=== PATIENT | female | born 1990 | race Caucasian/White ===

== ENCOUNTER 2019-10-10 14:51 | Emergency (ER) | payer MEDICARE, MEDICAID, SELFPAY ==
--- NOTE | ~2019-10-10 | US_ITS ---
EXAMINATION: US venous doppler LE EXAM DATE: 10/10/2019 17:36 INDICATION: Bilateral leg pain. TECHNIQUE: Multiple grayscale, color flow and Doppler images of the lower extremity deep venous syste ms bilaterally were obtained and reviewed. There is no prior study for comparison. FINDINGS: Right side: The right common femoral, femoral and profunda veins demonstrate normal color flow, respi ratory variation, augmentation and compressibility. Compressibility, color flow confirmed within the right popliteal, posterior tibial, peroneal, and greater saphenous veins. Left side: The left common femoral, femoral and profunda veins demonstrate normal color flow, respira tory variation, augmentation and compressibility. Compressibility, color flow confirmed within the l eft popliteal, posterior tibial, peroneal, and greater saphenous veins. IMPRESSION: 1. No lower extremity deep venous thrombosis bilaterally. Reviewed, dictated and finalized at location A.
--- NOTE | ~2019-10-10 | XR_ITS ---
XR chest 2V 10/10/2019 16:11 Indication: Left-sided chest pain Procedure: PA and lateral views of the chest Comparison: No prior studies for comparison. Findings: Heart size normal. No focal air space disease, pulmonary edema, pleural effusion or suspect ed pneumothorax. There are pacemaker leads in expected position. Impression: 1: No acute cardiopulmonary disease. Reviewed, dictated and finalized at location A. Impression: 1: No acute cardiopulmonary disease.
--- NOTE | ~2019-10-10 | CT_ITS ---
EXAMINATION: CTA chest PE protocol EXAM DATE: 10/10/2019 19:28 INDICATION: Shortness of breath. History pulmonary embolism and contrast allergy, hives. TECHNIQUE: Spiral CTA of the chest (pulmonary arteries) was performed with 100 cc Omnipaque 350 intr avenous contrast injection. Images were acquired during the pulmonary arterial phase. Coronal maxi mum intensity projection 3D-reconstructions were created by the technologist on dedicated workstation . Axial, coronal and sagittal reformatted images were reviewed. The dose-length product (DLP) for t his examination was 886.31 mGy-cm. The exposure was tailored according to patient size (auto mA exp osure control), and iterative reconstruction (ASIR) was used as additional dose reduction technique. There is no prior study for comparison. FINDINGS: Pulmonary arteries are well opacified and without intraluminal filling defects. No thora cic aortic dissection. The lungs are clear. There are no pleural or pericardial effusions. Trach eobronchial tree is patent. There is no mediastinal, hilar or axillary lymphadenopathy. There is no pneumothorax. Borderline enlarged heart size. Cardiac pacemaker. No evidence of coronary arteri al calcification. There are cholecystectomy clips. There is mild thoracic spondylosis without osteo blastic or osteolytic lesions identified. IMPRESSION: 1. No acute cardiopulmonary findings. Reviewed, dictated and finalized at location A.
--- NOTE | 2019-10-10 14:53 | ECG_ITS ---
Measurements Intervals [place] Rate: 73 P: 42 MT: 194 QRS: 183 QRSD: 132 T: -14 QT: 378 QTc: 417 Interpretive Statements ELECTRONIC ATRIAL PACEMAKER WITH INHIBITION ELECTRONIC VENTRICULAR PACEMAKER NO FURTHER INTERPRETATION IS POSSIBLE ATYPICAL ECG Electronically Signed On 10-10-2019 18:58:45 CDT by Sher Rm D.O.
[2019-10-10 15:08] VITALS: BP 140/88; PULSE 94; RESP 17; TEMP 37.1; O2SAT 99
[2019-10-10 17:02] VITALS: PULSE 75
[2019-10-10 17:08] VITALS: BP 134/88; PULSE 100; RESP 18; O2SAT 96
[2019-10-10] MEDS: ASPIRIN 81 MG CHEWABLE TABLET 324 MG PO (17:10)
--- NOTE | 2019-10-10 17:12 | ED.GENADULT ---
HPI - General Adult General Chief complaint: Chest Pain Stated complaint: CP & SOB (has PM) Time Seen by Provider: 10/10/19 15:10 History of Present Illness HPI narrative: Patient is a 29 y/o female complaining of sharp, left sided chest pain starting about 3 hours ago. She states that her pain radiates to her back and deep respiration worsens her pain. She rate her pain as 9/10. She also has some bilateral leg pain. Related Data Allergies Allergy/AdvReac Type Severity Reaction Status Date / Time Beta-Blockers Allergy Anaphylaxis Verified 10/10/19 17:07 (Beta-Adrenergic Bloc iohexol Allergy Hives Verified 10/10/19 17:06 [From contrast - CT, X-RAY] latex Allergy Anaphylaxis Verified 10/10/19 17:07 Penicillins Allergy Hives Verified 10/10/19 17:07 peppermint Allergy Rash Verified 10/10/19 17:08 Review of Systems Constitutional: Constitutional: Denies chills, Denies fever(s), Denies headache(s) and Denies weakness Eyes: Eyes: Denies blurry vision ENT: Denies headache(s) and Denies neck pain Cardiovascular: Cardiovascular: Reports chest pain and Reports dyspnea Respiratory: Respiratory: Denies cough and Reports dyspnea Gastrointestinal: Gastrointestinal: Denies abdominal pain, Denies diarrhea, Denies nausea and Denies vomiting Genitourinary: Genitourinary: Denies hematuria and Denies dysuria Musculoskeletal: Musculoskeletal: Denies back pain, Denies neck pain and Reports other (+leg pain) Neurologic: Denies headache(s) and Denies weakness [facility] Social History Social History Gender identity (if verbalized by the patient): Female Exam Const: General: no acute distress and well developed Orientation/consciousness: oriented to person, oriented to place, oriented to time and patient oriented x3 HENMT: Head: normocephalic Ears: external ears normal General nose exam: Normal external nose present Eyes: General: appearance normal, both eyes and all related structures Conjunctivae: conjunctivae normal Neck: Neck: normal visual inspection and full ROM Chest: Chest palpation & inspection: normal inspection of the chest and no tenderness Resp: Effort & Inspection: normal respiratory effort Auscultation: clear to auscultation bilaterally Cardio: Rate: regular rate Rhythm: regular rhythm GI: GI Palp: No abdominal tenderness and Yes Soft to palpation Skin: General skin exam: normal color and turgor normal Neuro: General: oriented to person, oriented to place, oriented to time and patient oriented x3 Cognition (Neuro): normal cognition Extrem: General: normal to inspection, full ROM and no pedal edema Psych: Appearance: grossly normal Mental Status: mental status grossly normal Affect: normal affect Course Reevaluation(s) Reevaluation #1: Rechecked. Patient states that her chest pain has decreased. She does not want to have repeat cardiac enzyme drawn. Informed patient that MT can be missed without repeat labs. Patient states that she will folllow up with her doctor. Date: 10/10/19 Time: 20:00 Vital Signs Vital signs: Vital Signs Temperature 37.1 C 10/10/19 15:08 Pulse Rate 94 10/10/19 15:08 Respiratory Rate 17 10/10/19 15:08 Blood Pressure 140/88 10/10/19 15:08 Pulse Oximetry 99 10/10/19 15:08 Temperature 37.1 C 10/10/19 15:08 Pulse Rate 77 10/10/19 19:34 Respiratory Rate 14 10/10/19 19:34 Blood Pressure 126/67 10/10/19 19:34 Pulse Oximetry 99 10/10/19 19:34 Medical Decision Making Vital Signs Vital Signs: Vital Signs Temperature 37.1 C 10/10/19 15:08 Pulse Rate 94 10/10/19 15:08 Respiratory Rate 17 10/10/19 15:08 Blood Pressure 140/88 10/10/19 15:08 Pulse Oximetry 99 10/10/19 15:08 Temperature 37.1 C 10/10/19 15:08 Pulse Rate 77 10/10/19 19:34 Respiratory Rate 14 10/10/19 19:34 Blood Pressure 126/67 10/10/19 19:34 Pulse Oximetry 99 10/10/19 19:34 Lab
[2019-10-10 17:16] VITALS: O2SAT 96
[2019-10-10 17:20] LABS: Basophils Percent Auto 0.5 % (0.2-1.2); Eosinophils Absolute Auto 0.3 K/mm3 (0-0.3); Eosinophils Percent Auto 3.3 % (0-4.4); Hematocrit 37.5 % (37.0-47.0); Hemoglobin 11.7 g/dL (12.0-15.0); Immature Granulocyte Absolute 0.03 K/mm3 (0.00-0.031); Immature Granulocyte Percent A 0.4 % (0-0.5); Lymphocytes Absolute Auto 1.27 K/mm3 (0.9-3.2); Lymphocytes Percent Auto 15.9 % (18.3-44.2); Mean Corpuscular HGB Conc 31.2 g/dl (32-36); Mean Corpuscular Hemoglobin 22.8 pg (26-34); Mean Corpuscular Volume 73.1 fl (80-100); Mean Platelet Volume 8.8 fl (7.4-10.4); Monocytes Absolute Auto 0.4 K/mm3 (0.1-0.6); Monocytes Percent Auto 5.5 % (2.6-8.5); Neutrophils Percent Auto 74.4 % (45.5-73.1); Platelet Count Result 358 k/mm3 (150-375); Red Blood Count 5.13 M/mm3 (4.2-5.4); Red Cell Distribution Width 17.9 % (11.5-14.5)
[2019-10-10 17:28] LABS: INR 0.9; Prothrombin Time 12.1 Seconds (11.1-14.7)
[2019-10-10 17:29] LABS: Partial Thromboplastin Time 21.1 SECONDS (22.3-36.8)
[2019-10-10 17:31] LABS: Blood Urea Nitrogen 11 mg/dL (7-17); Calcium 10.2 mg/dL (8.4-10.2); Carbon Dioxide 28 mmol/L (22-30); Chloride 104 mmol/L (98-107); Estimated CRCL calculation 153 ml/min; Estimated Glomerular Filt Rate > 60; Glucose 101 mg/dL (65-105); Potassium 4.2 mmol/L (3.4-5.0); Sodium 138 mmol/L (137-145)
[2019-10-10 17:43] LABS: Troponin I < 0.012 ng/mL (0.000-0.034)
[2019-10-10] MEDS: ONDANSETRON INJ 4 MG/2 ML VIAL IV PUSH (17:58)
[2019-10-10] MEDS: KETOROLAC 30 MG/ML VIAL (*BKC) IV PUSH (17:58)
--- NOTE | 2019-10-10 18:05 | PC.NURSE ---
pt has had full hyst. no need for test
[2019-10-10 18:33] LABS: Add Urine Microscopic? YES; Amorphous Sediment Urine Few; Appearance Urine Cloudy (Clear); Bilirubin Urine Negative (Negative); Blood Urine Negative (Negative); Color Urine Yellow (Yellow); Glucose Urine UA Negative (Negative); Ketones Urine Negative (Negative); Leukocyte Esterase Ur Negative LEU/UL (Negative); Mucus Urine Rare /lpf; Nitrate Urine Negative (Negative); Protein Urine Negative (Negative); RBC Urine 0-2 /hpf (0-2); Specific Grav Ur 1.021 (1.001-1.035); Squamous Epithelial Cell Urine Few /hpf (Few); Urobilinogen Urine Negative mg/dL (<2.0); WBC Urine 0-3 /hpf
[2019-10-10] MEDS: methylPREDNISolone SOD SUCC 125 MG VIAL IV PUSH (18:49)
[2019-10-10] MEDS: CYCLOBENZAPRINE HCL 10 MG TABLET PO (19:31)
[2019-10-10 19:34] VITALS: BP 126/67; PULSE 77; RESP 14; O2SAT 99
--- NOTE | 2019-10-10 19:35 | PC.NURSE ---
Patient reports severe itching from contrast. EDP Nigel notified.
--- NOTE | 2019-10-10 20:16 | PC.NURSE ---
Patient refusing to have 3 hour troponin drawn at this time. EDP Nigel notified.
== END 2019-10-10 20:22 | disposition home or self-care (01) ==
PROVIDERS: Emergency Provider Emergency Medicine
DX: R07.9 Chest pain, unspecified (principal); M79.605 Pain in left leg; M79.604 Pain in right leg; Z95.0 Presence of cardiac pacemaker
CPT/HCPCS: 36415; 71046; 71275; 80048; 81001; 84484; 85025; 85610; 85730; 93005; 93970; 96374; 96375; 96376; 99284; A9270; J1200; J1885; J2405; J2930; Q9967

== ENCOUNTER 2021-12-29 23:03 | Emergency (ER) | payer MEDICARE, MEDICAID, SELFPAY ==
--- NOTE | ~2021-12-29 | XR_ITS ---
EXAMINATION: XR chest 1V portable INDICATION: Left-sided chest pain and shortness of breath TECHNIQUE: Portable AP chest at 2324 hours COMPARISON: 10/10/2019 FINDINGS: The lungs are free of acute opacities. No pleural effusion or pneumothorax. A 4-lead cardia c pacemaker of the left chest wall ends with leads in expected locations. IMPRESSION: 1. No acute cardiopulmonary abnormality. Reviewed, dictated and finalized at location A.
--- NOTE | ~2021-12-29 | CT_ITS ---
EXAMINATION: CTA chest PE protocol DATE: 12/30/2021 05:08 INDICATION: Left chest pain. Shortness of breath. TECHNIQUE: Computed tomography angiography (CTA) of the chest was performed with 100 mL Omnipaque-350 intravenous contrast timed to evaluate the pulmonary arteries. Coronal maximum intensity projection 3D-reconstructions were created by the technologist. Automated exposure control and iterative reconst ruction technique were employed. The dose-length product was 904.24 mGy-cm. COMPARISON: Chest CT 10/10/2019 FINDINGS: The lungs demonstrate mild atelectasis. No pleural effusion. Cardiomegaly is noted. No maida cardial effusion. There is a left chest pacer with leads in right atrium, right ventricle, and magdaleno ry sinus. There is no pulmonary embolus. There are changes of cholecystectomy. There is mild thoracic spondylosis. IMPRESSION: 1. No pulmonary embolus. Reviewed, dictated and finalized at location A. IMPRESSION: 1. No pulmonary embolus.
[2021-12-29 23:07] VITALS: BP 134/78; PULSE 70; RESP 14; O2SAT 100
--- NOTE | 2021-12-29 23:11 | ECG_ITS ---
Measurements Intervals [place] Rate: 69 P: -40 [place]: 205 QRS: 170 QRSD: 133 T: 17 QT: 401 QTc: 432 Interpretive Statements ELECTRONIC ATRIAL PACEMAKER ELECTRONIC VENTRICULAR PACEMAKER ABNORMAL RHYTHM ECG COMPARED TO ECG 10/10/2019 15:03:00 NO SIGNIFICANT CHANGES Electronically Signed On 12-30-2021 16:55:51 CDT by Petr Teran M.D.
[2021-12-29 23:12] VITALS: O2SAT 100
--- NOTE | 2021-12-29 23:28 | PC.NURSE ---
Attempted IV access X2, unsuccessful. Another RN attempting.
[2021-12-29 23:33] VITALS: PULSE 70; RESP 18
--- NOTE | 2021-12-29 23:38 | ED.GENADULT ---
HPI - General Adult General Chief complaint: Chest Pain Stated complaint: chest pain Time Seen by Provider: 12/29/21 23:11 History of Present Illness HPI narrative: Patient is a 31-year-old female who presents the emergency department with chief complaint of chest pain and shortness of breath. Patient reports that she has history of a pacemaker and reports that she now currently has a free-floating pacemaker. Patient states that she has been having sharp type pain in her left chest today reports is worse with inspiration. Patient states she is also had some increasing shortness of breath and reports that she has noticed that she had a little bit of swelling. Patient reports she has had episodes of congestive heart failure before in the past also reports that she has history of a pulmonary embolism. Patient does report that she has had itching after receiving IV contrast and normally is premedicated with Solu-Medrol and Benadryl. Related Data Allergies Allergy/AdvReac Type Severity Reaction Status Date / Time Beta-Blockers Allergy Anaphylaxis Verified 12/30/21 00:11 (Beta-Adrenergic Bloc iohexol Allergy Hives Verified 12/30/21 00:11 [From contrast - CT, X-RAY] latex Allergy Anaphylaxis Verified 12/30/21 00:11 Penicillins Allergy Hives Verified 12/30/21 00:11 peppermint Allergy Rash Verified 12/30/21 00:11 Review of Systems Review of Systems: A 10 system review of systems was completed on the patient and is negative except for what is stated in the HPI. Nursing and ancillary documentation was reviewed. [facility] Social History Social History Gender identity (if verbalized by the patient): Female Comments Patient has past medical history significant for pacemaker and absent SA node. Patient has history of foot drop due to degenerative disc disease. Exam Narrative: GENERAL: Well-appearing, well-nourished, and in no acute distress. HEAD: Normocephalic, atraumatic. EYES: PERRLA and EOMI. ENT: Nares clear, no rhinorrhea or epistaxis. Mucous membranes moist. NECK: Supple. CHEST: Clear to auscultation. No respiratory distress. HEART: Regular rate and rhythm. No murmur heard. Normal peripheral pulses. ABDOMEN: Soft, nontender, nondistended, normal active bowel sounds. EXTREMITIES: Normal range of motion. No edema. Both extremities are in braces SKIN: Warm, dry, no rash. NEURO: No focal deficits. Alert and oriented x3. PSYCH: Normal mood and affect. Course Course Emergency Course: EKG is atrial paced with a rate of 69 Patient had 2 sets of troponins that were negative in the emergency department. Due to a contrast allergy patient underwent a rapid prep which is showing no evidence of pulmonary embolism. The patient's pacemaker was interrogated which showed no abnormalities. Vital Signs Vital signs: Vital Signs Pulse Rate 70 12/29/21 23:07 Respiratory Rate 14 12/29/21 23:07 Blood Pressure 134/78 12/29/21 23:07 Pulse Oximetry 100 12/29/21 23:07 Oxygen Delivery Room Air 12/29/21 23:07 Pulse Rate 70 12/30/21 03:45 Respiratory Rate 15 12/30/21 03:33 Blood Pressure 117/83 12/30/21 03:33 Pulse Oximetry 98 12/30/21 03:45 Oxygen Delivery Room Air 12/29/21 23:12 Medical Decision Making Vital Signs Vital Signs: Vital Signs Pulse Rate 70 12/29/21 23:07 Respiratory Rate 14 12/29/21 23:07 Blood Pressure 134/78 12/29/21 23:07 Pulse Oximetry 100 12/29/21 23:07 Oxygen Delivery Room Air 12/29/21 23:07 Pulse Rate 70 12/30/21 03:45 Respiratory Rate 15 12/30/21 03:33 Blood Pressure 117/83 12/30/21 03:33 Pulse Oximetry 98 12/30/21 03:45 Oxygen Delivery Room Air 12/29/21 23:12 Lab Data Result diagrams: 12/29/21 23:38 12/29/21 23:38 Labs: Lab Results 12/29/21 12/29/21 12/29/21 Range/Units 23:38 23:38 23:38 WBC 9.0 (4.5-10.0) K/mm
[2021-12-29] MEDS: diphenhydrAMINE HCl INJ 50 MG/ML VIAL IV PUSH (23:41)
[2021-12-29] MEDS: MORPHINE SULFATE (*CRX) 4 MG/ML INJ IV PUSH (23:41)
[2021-12-29] MEDS: ONDANSETRON INJ 4 MG/2 ML VIAL IV PUSH (23:41)
[2021-12-29 23:43] LABS: Basophils Absolute Auto 0.1 K/mm3 (0.0-0.1); Basophils Percent Auto 0.6 % (0.2-1.2); Eosinophils Absolute Auto 0.4 K/mm3 (0-0.3); Eosinophils Percent Auto 4.3 % (0-4.4); Hematocrit 34.1 % (37.0-47.0); Hemoglobin 10.7 g/dL (12.0-15.0); Immature Granulocyte Absolute 0.03 K/mm3 (0.00-0.031); Immature Granulocyte Percent A 0.3 % (0-0.5); Lymphocytes Absolute Auto 2.85 K/mm3 (0.9-3.2); Lymphocytes Percent Auto 31.7 % (18.3-44.2); Mean Corpuscular HGB Conc 31.4 g/dl (32-36); Mean Corpuscular Hemoglobin 24.8 pg (26-34); Mean Corpuscular Volume 79.1 fl (80-100); Mean Platelet Volume 8.8 fl (7.4-10.4); Monocytes Absolute Auto 0.6 K/mm3 (0.1-0.6); Monocytes Percent Auto 6.2 % (2.6-8.5); Neutrophils Absolute Auto 5.1 K/mm3 (1.3-6.7); Neutrophils Percent Auto 56.9 % (45.5-73.1); Platelet Count Result 298 k/mm3 (150-375); Red Blood Count 4.31 M/mm3 (4.2-5.4); Red Cell Distribution Width 14.8 % (11.5-14.5)
[2021-12-29 23:45] VITALS: PULSE 70; RESP 16; O2SAT 100
[2021-12-29 23:53] LABS: Alanine Aminotransferase 16 U/L (6-35); Albumin Level 3.7 g/dL (3.5-5.1); Alkaline Phosphatase 94 U/L (38-126); Anion Gap 11 mmol/L (8-16); Aspartate Amino Transferase 18 U/L (14-36); Bilirubin,Total 0.2 mg/dL (0.2-1.3); Blood Urea Nitrogen 12 mg/dL (7-17); Calcium 9.4 mg/dL (8.4-10.2); Carbon Dioxide 28 mmol/L (22-30); Chloride 99 mmol/L (98-107); Estimated CRCL calculation 130 ml/min; Estimated Glomerular Filt Rate > 60; Glucose 105 mg/dL (65-110); Lipase 92 U/L (23-300); Potassium 3.7 mmol/L (3.4-5.0); Sodium 138 mmol/L (137-145)
[2021-12-29 23:56] LABS: Prothrombin Time 12.6 Seconds (11.1-14.7)
[2021-12-29 23:57] LABS: Partial Thromboplastin Time 31.4 SECONDS (22.3-36.8)
[2021-12-29 23:59] VITALS: BP 118/76; PULSE 70; RESP 19; O2SAT 100
[2021-12-30] VITALS (34 sets, daily range): BP systolic 113–127; BP diastolic 64–83; PULSE 70; RESP 12–22; O2SAT 96–100
--- NOTE | 2021-12-30 | PC.NURSE ---
Patients pacer interrogated.
[2021-12-30 00:04] LABS: NT Pro B Type Natriuretic Pept 231 pg/mL (5-100); Troponin I < 0.012 ng/mL (0.000-0.034)
--- NOTE | 2021-12-30 00:05 | PC.NURSE ---
Jane from [employer] calls to inform that the report is faxed.
[2021-12-30] MEDS: methylPREDNISolone SOD SUCC 40 MG VIAL IV PUSH ×2 (00:51→05:06)
[2021-12-30] MEDS: HYDROmorphone HCL INJ (*CRX) 1 MG/ML SYR IV PUSH ×2 (00:51→03:17)
[2021-12-30 03:00] LABS: Troponin I < 0.012 ng/mL (0.000-0.034)
[2021-12-30] MEDS: diphenhydrAMINE HCl INJ 50 MG/ML VIAL IV PUSH ×2 (03:56→05:06)
--- NOTE | 2021-12-30 04:47 | PC.NURSE ---
Patient CT at this time.
== END 2021-12-30 05:57 | disposition home or self-care (01) ==
PROVIDERS: Emergency Provider Emergency Medicine
DX: R07.89 Other chest pain (principal); Z95.0 Presence of cardiac pacemaker
CPT/HCPCS: 36415; 71045; 71275; 80053; 83690; 83880; 84484; 85025; 85610; 85730; 93005; 96374; 96375; 96376; 99284; J1170; J1200; J2270; J2405; J2920; Q9967

== ENCOUNTER 2022-01-05 11:06 | Observation (INO) | payer MEDICARE, MEDICAID, SELFPAY ==
[2022-01-05] VITALS (16 sets, daily range): BP systolic 100–147; BP diastolic 62–97; PULSE 70; RESP 16–20; TEMP 36.4–36.6; O2SAT 96–100; BMI 50.9
--- NOTE | ~2022-01-05 | XR_ITS ---
EXAMINATION: XR chest 2V DATE: 01/05/2022 11:31 INDICATION: Left chest pain. TECHNIQUE: Frontal and lateral views of the chest were obtained on 3 radiographs. COMPARISON: Chest single view 12/29/2021, chest CT 12/30/2021 FINDINGS: The chest demonstrates clear lungs without pneumonia, pleural effusion, or pneumothorax. Th e heart size is normal. There is a left chest pacer with leads in right atrium, right ventricle, and coronary sinus. There is an additional lead in right atrium. Surgical clips in the right upper quadra nt are likely from cholecystectomy. IMPRESSION: 1. No acute cardiopulmonary disease. Reviewed, dictated and finalized at location A.
--- NOTE | 2022-01-05 11:10 | ECG_ITS ---
Measurements Intervals [place] Rate: 69 P: -4 RI: 209 QRS: 177 QRSD: 121 T: -5 QT: 396 QTc: 427 Interpretive Statements ELECTRONIC ATRIAL PACEMAKER ELECTRONIC VENTRICULAR PACEMAKER ATYPICAL ECG COMPARED TO ECG 12/29/2021 23:10:52 NO SIGNIFICANT CHANGES Electronically Signed On 01-05-2022 14:00:29 CDT by Sher Rm D.O.
[2022-01-05 12:33] LABS: Alanine Aminotransferase 117 U/L (6-35); Albumin Level 4.1 g/dL (3.5-5.1); Alkaline Phosphatase 192 U/L (38-126); Anion Gap 7 mmol/L (8-16); Aspartate Amino Transferase 45 U/L (14-36); Bilirubin,Total 0.8 mg/dL (0.2-1.3); Blood Urea Nitrogen 7 mg/dL (7-17); Calcium 9.3 mg/dL (8.4-10.2); Carbon Dioxide 27 mmol/L (22-30); Chloride 104 mmol/L (98-107); Estimated CRCL calculation 117 ml/min; Estimated Glomerular Filt Rate > 60; Glucose 102 mg/dL (65-110); Lipase 56 U/L (23-300); Potassium 4.5 mmol/L (3.4-5.0); Sodium 138 mmol/L (137-145)
[2022-01-05 12:39] LABS: INR 0.9; Prothrombin Time 12.2 Seconds (11.1-14.7)
[2022-01-05 12:40] LABS: Partial Thromboplastin Time 25.6 SECONDS (22.3-36.8)
[2022-01-05 12:43] LABS: Troponin I < 0.012 ng/mL (0.000-0.034)
--- NOTE | 2022-01-05 13:16 | PC.NURSE ---
Pt refusing Toradol said it never works with me and better not have it .
[2022-01-05] MEDS: ONDANSETRON INJ 4 MG/2 ML VIAL IV PUSH (13:27)
[2022-01-05] MEDS: MORPHINE SULFATE (*CRX) 4 MG/ML INJ IV PUSH (13:33)
[2022-01-05 13:57] LABS: Basophils Percent Auto 0.3 % (0.2-1.2); Eosinophils Absolute Auto 0.3 K/mm3 (0-0.3); Eosinophils Percent Auto 3.5 % (0-4.4); Hematocrit 35.2 % (37.0-47.0); Hemoglobin 10.8 g/dL (12.0-15.0); Immature Granulocyte Absolute 0.04 K/mm3 (0.00-0.031); Immature Granulocyte Percent A 0.4 % (0-0.5); Lymphocytes Absolute Auto 1.56 K/mm3 (0.9-3.2); Lymphocytes Percent Auto 17.5 % (18.3-44.2); Mean Corpuscular HGB Conc 30.7 g/dl (32-36); Mean Corpuscular Hemoglobin 24.6 pg (26-34); Mean Corpuscular Volume 80.2 fl (80-100); Mean Platelet Volume 8.9 fl (7.4-10.4); Monocytes Absolute Auto 0.4 K/mm3 (0.1-0.6); Monocytes Percent Auto 4.7 % (2.6-8.5); Neutrophils Absolute Auto 6.5 K/mm3 (1.3-6.7); Neutrophils Percent Auto 73.6 % (45.5-73.1); Platelet Count Result 353 k/mm3 (150-375); Red Blood Count 4.39 M/mm3 (4.2-5.4); Red Cell Distribution Width 15.4 % (11.5-14.5); White Blood Count 8.9 K/mm3 (4.5-10.0)
[2022-01-05 14:18] LABS: Troponin I < 0.012 ng/mL (0.000-0.034)
[2022-01-05] MEDS: MORPHINE SULFATE (*CRX) 2 MG/ML INJ IV PUSH ×3 (14:47→20:29)
--- NOTE | 2022-01-05 15:47 | ED.CHESTPAIN ---
HPI - Chest Pain General Chief Complaint: Chest Pain Stated Complaint: chest pain Time Seen by Provider: 01/05/22 11:22 Source: RN notes reviewed History of Present Illness HPI narrative: Patient presents emergency room from home for chest pain. Patient states he has been having midsternal chest pain that radiates into her left arm the pain is described as a pressure in nature states she does have a feeling of shortness of breath with the symptoms she denies any fevers or chills states she does have associated nausea. Patient states she has a cardiac history of having 9 total cardiac ablation secondary to A. fib and SVT this ultimately resulted in ablation of her SA node and has had a pacemaker placed she states her pacemaker was last replaced in July but she does not follow with any director of collections and archives Related Data Allergies Allergy/AdvReac Type Severity Reaction Status Date / Time Beta-Blockers Allergy Anaphylaxis Verified 12/30/21 00:11 (Beta-Adrenergic Bloc iohexol Allergy Hives Verified 12/30/21 00:11 [From contrast - CT, X-RAY] latex Allergy Anaphylaxis Verified 12/30/21 00:11 Penicillins Allergy Hives Verified 12/30/21 00:11 peppermint Allergy Rash Verified 12/30/21 00:11 Review of Systems Review of Systems: Gen.: Denies fevers or chills ENT: Denies congestion Respiratory: Reports shortness of breath CV: see HPI GI: Denies abdominal pain, emesis or diarrhea recent nausea Musculoskeletal: Denies back pain or muscle pain Neuro: Denies numbness, tingling, weakness or focal weakness Skin: Denies rash Except as documented, all other systems reviewed and negative [facility] Past Medical History Medical History (Updated 01/05/22 @ 16:08 by Keith Teresa DO) Atrial fibrillation Social History Social History (Updated 01/05/22 @ 16:07 by Keith Teresa DO) Smoking status: Never smoker Gender identity (if verbalized by the patient): Female Exam Narrative: APPEARANCE: No acute distress, nontoxic, resting in bed EYES: EOMI HEENT: Normocephalic, atraumatic, OMM RESPIRATORY: No respiratory distress Clear to auscultation bilaterally with no rhonchi wheezing or rales. CARDIOVASCULAR: Regular rate and rhythm without murmurs rubs or gallops. ABDOMINAL: Soft, nontender, nondistended, no rebound or guarding MUSCULOSKELETAl: Moves all extremities. No clubbing, cyanosis or edema. NEURO: Awake and alert. Following commands, speech normal, no focal deficits SKIN:: Warm, dry. No rashes lesions or abrasions PSYCHIATRIC: Normal affect/mood, Course Course Emergency Course: -year-old records the patient was seen here on 12/29/[address] of her chest at that time is negative I discussed with patient her history of PEs last PE was 3 years ago following surgery states she had been on Xarelto at one point but had a reaction to it and she just restarted taking Lovenox injections approximately 3 days ago Discussed with patient she states that her does not help with her pain working given with resolution of her pain Discussed with ILDA Abreu for Dr. Olivia agrees with admission Discussed with Dr. Teran agrees with consult Discussed with patient and family results of workup and diagnosis. Discussed need for admission. Patient and family understand and agree to current treatment plan Vital Signs Vital signs: Vital Signs Temperature 97.6 F 01/05/22 11:17 Pulse Rate 70 01/05/22 11:17 Respiratory Rate 16 01/05/22 11:17 Blood Pressure 118/78 01/05/22 11:17 Pulse Oximetry 100 01/05/22 11:17 Oxygen Delivery Room Air 01/05/22 11:17 Temperature 97.6 F 01/05/22 11:17 Pulse Rate 70 01/05/22 15:33 Respiratory Rate 18 01/05/22 15:33 Blood Pressure 120/76 01/05/22 15:33 Pulse Oximetry 100 01/05/22 15:33 Oxygen Delivery Room Air 01/05/22 11:37 MDM - Chest Pain Lab Data Result diagrams: 01/05/22 13:52 01/05/22 12:16 Labs: Lab Results
--- NOTE | 2022-01-05 16:30 | PM.IMHP ---
H&P: HPI History of Present Illness Date/Time: 01/05/22 16:30 Chief Complaint: Chest pain. Narrative: This is a 31-year-old female with history of atrial fibrillation and supraventricular tachycardia status post cardiac ablation x9, permanent pacemaker implantation, and pulmonary embolism who presented to the ED from home for evaluation of chest pain. Her first pacemaker was inserted in 2012 and she has reportedly had several other surgeries for generator changes and lead replacements, most recently in July 2021 at [facility]. It is not unusual for her to have pain in the left anterior chest near the pacemaker and she reports that the pocket is quite large and the pacemaker migrates frequently, causing sharp pain which radiates into the left upper arm. She came in today for evaluation of this very pain. She is on chronic pain medications at home due to severe spinal stenosis and to those medications have not provided her with any significant relief. Morphine given in the emergency department has been only thing that has really helped take the edge off. EKG done today on arrival shows an atrial and ventricular paced rhythm. She has thus far had 2 negative troponins. Pertinent labs include a stable hemoglobin of 10.8, normal electrolytes, normal troponin, lipase 56, and moderate LFT elevation with an AST of 45, ALT 117, alkaline phosphatase 182. Plans were for the patient to follow-up with her music therapy teacher should her troponins remain negative however she reports not currently having a music therapy teacher as [facility] will no longer see her after 3 missed appointments, per patient report. Due to lack of follow-up I was asked to admit her overnight for observation and Cardiology consultation. Again morphine has helped with her chest pain. She has no current complaints at this time. Of note she was seen emergency department within the past week with similar complaints and a CTA of the chest done at that time showed no evidence of pulmonary embolism. Review of Systems Review of Systems: Twelve systems were reviewed. No syncope or presyncope. She has bilateral footdrop, reportedly is secondary to severe spinal stenosis, and she has braces on both of her legs. She also uses a wheelchair for longer distances. She suffers from PTSD and has a good support system in her fiance. No recent cold or flu symptoms. Appetite has been okay. No nausea, vomiting, or diarrhea. She denies abdominal pain. Reports mild dysuria. Except as documented, all other systems were reviewed and are negative. [facility] Past Medical History Medical History (Updated 01/05/22 @ 22:26 by Lois Altman PA-C) Atrial fibrillation Bilateral foot-drop Chronic anemia Chronic pain syndrome Depression with anxiety Posttraumatic stress disorder Pulmonary embolism Spinal stenosis Supraventricular tachycardia Surgical History Surgical History (Updated 01/05/22 @ 22:23 by Lois Altman PA-C) History of Achilles tendon repair History of appendectomy History of cardiac radiofrequency ablation History of section History of cholecystectomy History of hysterectomy History of permanent cardiac pacemaker placement Family History Family History (Updated 01/05/22 @ 22:23 by Lois Altman PA-C) Father Spinal cord tumor Social History Social History (Updated 01/05/22 @ 22:24 by Lois Altman PA-C) Social History: Surrogate medical decision maker: moriah Ruvalcaba. Code status: Full code. Smoking status: Never smoker Alcohol intake: never Substance use: never Substance use type: does not use Additional living arrangements comments: Lives in [place], [place] with her 8-year-old daughter and moriah. Additional occupation/education comments: On disability. Spiritual care concerns: Yes (Would like Director Of Nuclear Medicine to see her if possible) Meds Home Medications and Allergies Home Medications Medication Instructions Recorded Confirmed Type baclo
--- NOTE | 2022-01-05 17:33 | ADMGEN ---
This patient, Tatiana Leija, was admitted to IMU Room 209-01 at 1708. Patient/family oriented to hospital policies and general routines including ID bracelet, bed and alarms, visiting hours, pain management, procedures, bathroom and other care routines, personal items, smoking policy, room service/diet, and visiting hours. Information on how to activate the Rapid Response Team has been discussed. Patient/Family are encouraged to report perceived risks to care and to ask questions if they do not understand what they are told or what they should do.
[2022-01-05 18:10] LABS: Troponin I < 0.012 ng/mL (0.000-0.034)
[2022-01-05] MEDS: LORazepam (*CRX) 1 MG TABLET PO (20:31)
[2022-01-05] MEDS: ESCITALOPRAM OXALATE 10 MG TABLET 20 MG PO (20:53)
[2022-01-05] MEDS: traZODone HCL 50 MG TABLET 200 MG PO (20:54)
[2022-01-05] MEDS: traMADol HCL (*CRX) 50 MG TABLET PO (22:29)
[2022-01-05 22:55] LABS: Acetaminophen < 10 ug/mL (10-30)
[2022-01-06] VITALS (8 sets, daily range): BP systolic 105–112; BP diastolic 52–80; PULSE 69–70; RESP 12–20; TEMP 36.3–36.6; O2SAT 97–100
[2022-01-06] MEDS: MORPHINE SULFATE (*CRX) 2 MG/ML INJ IV PUSH ×3 (00:16→08:31)
[2022-01-06 05:01] LABS: Basophils Percent Auto 0.2 % (0.2-1.2); Eosinophils Absolute Auto 0.3 K/mm3 (0-0.3); Eosinophils Percent Auto 3.4 % (0-4.4); Hematocrit 32.1 % (37.0-47.0); Hemoglobin 10.2 g/dL (12.0-15.0); Immature Granulocyte Absolute 0.04 K/mm3 (0.00-0.031); Immature Granulocyte Percent A 0.5 % (0-0.5); Lymphocytes Absolute Auto 2.06 K/mm3 (0.9-3.2); Lymphocytes Percent Auto 24.2 % (18.3-44.2); Mean Corpuscular HGB Conc 31.8 g/dl (32-36); Mean Corpuscular Hemoglobin 24.9 pg (26-34); Mean Corpuscular Volume 78.5 fl (80-100); Mean Platelet Volume 8.9 fl (7.4-10.4); Monocytes Absolute Auto 0.5 K/mm3 (0.1-0.6); Neutrophils Absolute Auto 5.6 K/mm3 (1.3-6.7); Neutrophils Percent Auto 65.7 % (45.5-73.1); Platelet Count Result 326 k/mm3 (150-375); Red Blood Count 4.09 M/mm3 (4.2-5.4); Red Cell Distribution Width 15.4 % (11.5-14.5); White Blood Count 8.5 K/mm3 (4.5-10.0)
[2022-01-06 05:12] LABS: Partial Thromboplastin Time 31.4 SECONDS (22.3-36.8); Prothrombin Time 12.9 Seconds (11.1-14.7)
[2022-01-06 05:17] LABS: Alanine Aminotransferase 112 U/L (6-35); Albumin Level 3.6 g/dL (3.5-5.1); Alkaline Phosphatase 219 U/L (38-126); Anion Gap 7 mmol/L (8-16); Aspartate Amino Transferase 83 U/L (14-36); Bilirubin,Total 0.6 mg/dL (0.2-1.3); Blood Urea Nitrogen 9 mg/dL (7-17); Calcium 8.9 mg/dL (8.4-10.2); Carbon Dioxide 27 mmol/L (22-30); Chloride 101 mmol/L (98-107); Estimated CRCL calculation 118 ml/min; Estimated Glomerular Filt Rate > 60; Glucose 120 mg/dL (65-110); Magnesium 2.4 mg/dL (1.6-2.3); Potassium 3.6 mmol/L (3.4-5.0); Sodium 135 mmol/L (137-145)
[2022-01-06 05:56] LABS: Hepatitis B Surface Antigen Negative (Negative)
[2022-01-06 06:01] LABS: HAV RESULT Negative (Negative); Hepatitis B Core IgM Result Negative (Negative)
[2022-01-06 06:13] LABS: Hepatitis C Virus Antibody Negative (Negative)
[2022-01-06 07:08] LABS: Free T4 Free Thyroxine Reflex 0.88 ng/dL (0.78-2.19)
[2022-01-06] MEDS: traMADol HCL (*CRX) 50 MG TABLET PO (07:29)
[2022-01-06 07:53] LABS: Total Triiodothyronine (T3) 1.18 NG/ML (0.97-1.69)
[2022-01-06] MEDS: ENOXAPARIN 40 MG/0.4 ML SYRINGE SUB-Q (08:31)
--- NOTE | 2022-01-06 09:41 | PM.CNCAR ---
Assessment and Plan Assessment and plan (1) Chest pain: Code(s): R07.9 - Chest pain, unspecified Status: Acute (2) Pacemaker: Code(s): Z95.0 - Presence of cardiac pacemaker Status: Acute Plan This is a 31-year-old lady who apparently experienced a AV node ablation during an attempt at ablating her atrial fibrillation approximately 10 years ago up in [place]. She therefore is dependent on electronic pacing. Her current device is a biventricular device as I can see 2 prior atrial leads, right ventricular lead in the high septum and a coronary sinus lead as well. She says this is a [employer] device. It appears to be functioning normally on telemetry and we will need to establish follow-up of this in our office as her previous physicians have dismissed her for noncompliance with office follow-up. It is clear that her chest pain symptoms are not mediated by myocardial ischemia she does not have to stay in the hospital any longer because of this chest pain. When she does need generator change it is possible to consider a subpectoral implant if mobility of the device is painful for her. Obviously I would not recommend reopening her pocket at this time and performing that procedure as it is a recently implanted device that is functioning well. Petr Teran MD [facility] History of Present Illness History of Present Illness Consult date/time: 01/06/22 09:41 Consult reason: chest pain Reason For Visit: chest pain Narrative: This is a 31-year-old woman who unfortunately has a chronically implanted pacemaker device because of complications that occurred during an ablation procedure about 10 years ago. She came to the hospital yesterday to the emergency room because of chest pain and was seen in the emergency room and have at evaluated and admitted to the hospital yesterday afternoon. The patient states that she has been having chest pain episodes for about 6 months and she attributes them to her pacemaker generator moving around inside of the pocket in her left anterior chest wall. She does notice that when she changes positions the pacemaker will migrate and become painful the pain yesterday was more severe and radiating down her left arm and she became concerned and came to the emergency room. In the emergency room her electrocardiogram demonstrates an AV sequentially paced rhythm but no other abnormalities. She had negative troponin on admission and that has remained negative x3 sets. She was given some morphine for this pain yesterday with improvement but not resolution of the discomfort. 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 Apparently her cardiac history starts about 10 years ago when she was living up in [place] and she developed symptomatic atrial fibrillation. She was treated in a private hospital in [place] with a ablation procedure and unfortunately experienced AV junction ablation and became dependent on a pacemaker at that time. She has had several pacemaker generator is done since then. She after a short time moved to the [facility] where she was originally from and has been seeing physicians over the years but at [facility], she says at [facility] and at [facility]. She can not tell me why she has been seeing physicians at all these different hospitals in the last decade. 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 She states that these symptoms have been bothering her since that procedure. She says that she has a [employer] pacemaker and has no other cardiac problems that she can recall. She is morbidly obese with a BMI of 50 and has a history of a spinal cord dysfunction related to disc disease
--- NOTE | 2022-01-06 10:04 | PM.DS ---
DS: Admitting Diagnosis Discharge Date January 06, 2022 Admitting Diagnosis Chest pain DS: Discharge Diagnosis Discharge Diagnosis (1) Chest pain: Code(s): R07.9 - Chest pain, unspecified Status: Acute Assessment and Plan: Her pain seems to be stemming from her pacemaker which reportedly migrates throughout the pocket, at times causing her severe chest pain radiating to the left arm. She was seen in this ER just last week at which time she had a CTA of the chest which ruled out pulmonary embolism. Her pain is unlikely to be stemming from an acute coronary syndrome. Dr. Teran (cardiology) was consulted by the ED physician and his input is greatly appreciated. Analgesics available as needed. (2) Chronic anemia: Code(s): D64.9 - Anemia, unspecified Status: Acute Assessment and Plan: Hemoglobin and hematocrit are stable on review of previous labs. (3) Elevated LFTs: Code(s): R79.89 - Other specified abnormal findings of blood chemistry Status: Acute Assessment and Plan: AST, ALT, and alkaline phosphatase are all elevated when compared to labs drawn last week. Her abdominal exam is benign. She denies taking significant quantities of Tylenol though will check acetaminophen level and hepatitis panel for completeness sake. Continue to monitor. (4) Chronic pain syndrome: Code(s): G89.4 - Chronic pain syndrome Status: Acute Assessment and Plan: Continue gabapentin and tramadol as prescribed. (5) Depression with anxiety: Code(s): F41.8 - Other specified anxiety disorders Status: Acute Assessment and Plan: The patient suffers from depression, anxiety, and posttraumatic stress disorder. States that is pretty well controlled on her home medication. Continue escitalopram and lorazepam. Plan Of note, the patient's primary care doctor started her on Lovenox 1 milligram/kilogram once a day several months ago ?because he thought a needed it due to my history of AFib.? She is not really compliant with that medication and she apparently did not start taking it for a month or more after it was prescribed and it does not sound as though she takes it on a daily basis. At this time will hold on therapeutic dose anticoagulation, pending Cardiology input. DS: Summary Hospital Course Hospital Course: 31-year-old female with history of atrial fibrillation and supraventricular tachycardia status post cardiac ablation x9, permanent pacemaker implantation, and pulmonary embolism who presented to the ED from home for evaluation of chest pain. Her first pacemaker was inserted in 2012 and she has reportedly had several other surgeries for generator changes and lead replacements, most recently in July 2021 at [facility]. It is not unusual for her to have pain in the left anterior chest near the pacemaker and she reports that the pocket is quite large and the pacemaker migrates frequently, causing sharp pain which radiates into the left upper arm. She came in today for evaluation of this very pain. She is on chronic pain medications at home due to severe spinal stenosis and to those medications have not provided her with any significant relief. Morphine given in the emergency department has been only thing that has really helped take the edge off. EKG done today on arrival shows an atrial and ventricular paced rhythm.? She has thus far had 2 negative troponins. Pertinent labs include a stable hemoglobin of 10.8, normal electrolytes, normal troponin, lipase 56, and moderate LFT elevation with an AST of 45, ALT 117, alkaline phosphatase 182. Plans were for the patient to follow-up with her assembler watch train should her troponins remain negative however she reports not currently having a assembler watch train as [facility] will no longer see her after 3 missed appointments, per patient report. Due to lack of follow-up I was asked to admit her overnight for observation and Cardiology consultation. A
== END 2022-01-06 14:40 | disposition home or self-care (01) ==
LOC: ANHED 16:08 → ANHIMU 16:38
PROVIDERS: Physician Assistant; Admitting Provider Student in an Organized Health Care Education/Training Program; Emergency Provider Emergency Medicine; Visit Provider Student in an Organized Health Care Education/Training Program
DX: R07.9 Chest pain, unspecified (principal); D64.9 Anemia, unspecified; R79.89 Other specified abnormal findings of blood chemistry; R06.02 Shortness of breath; Z95.0 Presence of cardiac pacemaker; G89.4 Chronic pain syndrome; F41.8 Other specified anxiety disorders; I48.91 Unspecified atrial fibrillation; I47.1 Supraventricular tachycardia; M48.00 Spinal stenosis, site unspecified; M21.372 Foot drop, left foot; M21.371 Foot drop, right foot; F43.10 Post-traumatic stress disorder, unspecified; Z86.711 Personal history of pulmonary embolism; Z79.01 Long term (current) use of anticoagulants; Z79.1 Long term (current) use of non-steroidal anti-inflammatories (NSAID); Z79.899 Other long term (current) drug therapy
CPT/HCPCS: 36415; 71046; 80053; 80074; 80307; 83690; 83735; 84439; 84443; 84480; 84484; 85025; 85610; 85730; 93005; 96372; 96374; 96375; 96376; 99285; A9270; G0378; J1650; J2270; J2405

== ENCOUNTER 2022-01-16 21:54 | Emergency (ER) | payer MEDICARE, MEDICAID, SELFPAY ==
[2022-01-16 22:00] VITALS: BP 135/85; PULSE 70; RESP 18; TEMP 36.3; O2SAT 99
[2022-01-16 22:33] LABS: Basophils Absolute Auto 0.1 K/mm3 (0.0-0.1); Basophils Percent Auto 0.5 % (0.2-1.2); Eosinophils Absolute Auto 0.3 K/mm3 (0-0.3); Eosinophils Percent Auto 2.3 % (0-4.4); Hematocrit 36.8 % (37.0-47.0); Hemoglobin 11.6 g/dL (12.0-15.0); Immature Granulocyte Absolute 0.03 K/mm3 (0.00-0.031); Immature Granulocyte Percent A 0.3 % (0-0.5); Lymphocytes Absolute Auto 2.66 K/mm3 (0.9-3.2); Lymphocytes Percent Auto 24.4 % (18.3-44.2); Mean Corpuscular HGB Conc 31.5 g/dl (32-36); Mean Corpuscular Hemoglobin 24.7 pg (26-34); Mean Corpuscular Volume 78.3 fl (80-100); Mean Platelet Volume 8.7 fl (7.4-10.4); Monocytes Absolute Auto 0.7 K/mm3 (0.1-0.6); Neutrophils Absolute Auto 7.3 K/mm3 (1.3-6.7); Neutrophils Percent Auto 66.5 % (45.5-73.1); Platelet Count Result 433 k/mm3 (150-375); Red Cell Distribution Width 14.9 % (11.5-14.5); White Blood Count 10.9 K/mm3 (4.5-10.0)
[2022-01-16 22:44] LABS: Alanine Aminotransferase 37 U/L (6-35); Albumin Level 4.3 g/dL (3.5-5.1); Alkaline Phosphatase 151 U/L (38-126); Anion Gap 16 mmol/L (8-16); Aspartate Amino Transferase 21 U/L (14-36); Bilirubin,Total 0.5 mg/dL (0.2-1.3); Blood Urea Nitrogen 9 mg/dL (7-17); Calcium 9.4 mg/dL (8.4-10.2); Carbon Dioxide 24 mmol/L (22-30); Chloride 101 mmol/L (98-107); Estimated CRCL calculation 79 ml/min; Estimated Glomerular Filt Rate > 60; Glucose 102 mg/dL (65-110); Lipase 89 U/L (23-300); Potassium 3.8 mmol/L (3.4-5.0); Sodium 141 mmol/L (137-145)
[2022-01-16 22:45] LABS: Ammonia < 9 umol/L (9-30); Lactic Acid Reflex 1.4 mmol/L (0.7-2.0)
--- NOTE | 2022-01-16 23:32 | PC.NURSE ---
p requesting to leave. no signs of distress.
== END 2022-01-16 23:32 | disposition left against medical advice (07) ==
LOC: ANHED 23:36
PROVIDERS: Emergency Medicine
DX: K92.1 Melena (principal)
CPT/HCPCS: 36415; 80053; 82140; 83605; 83690; 85025; 99199

== ENCOUNTER 2022-06-03 10:32 | Inpatient (IN) | payer MEDICARE, MEDICAID, SELFPAY ==
[2022-06-03] VITALS (29 sets, daily range): BP systolic 79–155; BP diastolic 54–100; PULSE 70–81; RESP 12–26; TEMP 36.2–36.5; O2SAT 93–100; BMI 45.6
--- NOTE | ~2022-06-03 | XR_ITS ---
EXAMINATION: XR chest 2V DATE: 06/03/2022 10:56 INDICATION: Chest pain. Shortness of breath. TECHNIQUE: Frontal and lateral views of the chest were obtained. COMPARISON: Chest 2 views 01/05/22, chest CT 12/30/2021 FINDINGS: There is no pneumonia, pleural effusion, or pneumothorax. Cardiomegaly is noted. There is a left chest pacer leads in right atrium, right ventricle, and coronary sinus. There is an additional retained lead in right ventricle. IMPRESSION: 1. Cardiomegaly. Reviewed, dictated and finalized at location A. IT OR LOANS OFFICER IMPRESSION: 1. Cardiomegaly.
--- NOTE | ~2022-06-03 | CT_ITS ---
EXAMINATION: CTA chest PE abdomen pel DATE: 06/03/2022 13:16 INDICATION: Pulmonary embolism TECHNIQUE: Computed tomography (CT) pulmonary angiogram of the chest was performed with 100 mL Omnipa que-350 intravenous contrast. Additional 3D reconstructions utilizing coronal maximum intensity proje ction (MIP) were performed. CT of the abdomen and pelvis was performed with intravenous contrast util izing the same contrast bolus following a short delay. Automated exposure control and iterative recon struction technique were employed. The dose-length product was 2565.12 mGy-cm. Following imaging the patient experienced rapid development of imaging and tightness sensation of the tongue and throat. A rapid response was called. When I arrived, Dr. Weinberg from the ED had already assessed the patient b rosendo treatment with administration of Benadryl. The patient was quickly transported to the emergency department for additional administration of epinephrine was planned. See ED note for further detail. Of note the patient had a history of prior mild contrast allergy with hives and had been pretreated w ith Benadryl and Solu-Medrol 30 minutes prior to contrast administration. This would be considered a moderate severity contrast allergy. COMPARISON: Chest CT dated 12/30/2021 FINDINGS: Chest: Excellent contrast opacification of the pulmonary arteries. There is mild streak artifact from dense contrast in the superior vena cava and right atrium. Mild scattered respiratory motion artifact which does not significantly limit evaluation. No pulmonary embolism small lung volumes with mosaic attenu ation likely related to poor inspiratory effort. No pneumonia, supply thickening to suggest pulmonary edema or pleural effusion. Mild cardiomegaly. No pericardial effusion. Three lead pacemaker with ronaldo ds at the right atrial appendage, apex of the right ventricle and in a coronary vein overlying the la teral left ventricle having traversed the coronary sinus. There is an additional second likely discon nected right atrial lead. Thoracic aorta is normal in caliber with no dissection. No pathologically e nlarged thoracic lymphadenopathy. Abdomen/pelvis: Cholecystectomy clips the gallbladder fossa. Liver, spleen, pancreas, bilateral adrenal glands and ki dneys are normal. Bowels are unremarkable with no evident wall thickening or obstruction. The appendi x is not visualized. No pericecal inflammatory change to suggest acute appendicitis.. Bladder is nor mal. The uterus is not identified and has likely been surgically resected. No free intraperitoneal ga s or fluid. No pathologically enlarged abdominal or pelvic lymphadenopathy. Mild to moderate lower th oracic and minimal lumbar spondylosis. IMPRESSION: 1. Small lung volumes with diffuse mild atelectasis most likely related to poor respiratory effort. N o pulmonary embolism or other acute cardiopulmonary disease. 2. Cardiomegaly. 3. No acute intra-abdominal/pelvic process. 4. Moderate contrast reaction with tightness sensation of the tongue and throat despite prior premedi cation. Patient was returned to the ED in the company of the ED physician for treatment of the contra st reaction. See ED note for further detail. Reviewed, dictated and finalized at location A. FICO ARCHITECT IMPRESSION: 1. Small lung volumes with diffuse mild atelectasis most likely related to poor respiratory effort. No pulmonary embolism or other acute cardiopulmonary disea se. 2. Cardiomegaly. 3. No acute intra-abdominal/pelvic process. 4. Moderate contrast reaction with tightness sensation of the tongue and throat despite prior premedication. Patient was returned to the ED in the company of the ED physician for treatment of the contrast reaction. See ED note for furthe r detail.
--- NOTE | 2022-06-03 10:33 | ECG_ITS ---
Measurements Intervals [place] Rate: 69 P: -79 VT: 192 QRS: 172 QRSD: 148 T: 5 QT: 433 QTc: 467 Interpretive Statements ELECTRONIC ATRIAL PACEMAKER ELECTRONIC VENTRICULAR PACEMAKER BASELINE ARTIFACT- I, II, AVR NO FURTHER INTERPRETATION IS POSSIBLE ATYPICAL ECG COMPARED TO ECG 01/05/2022 11:14:53 NO SIGNIFICANT CHANGES Electronically Signed On 06-03-2022 10:43:59 OVERNIGHT ASSOCIATE by Sher Rm D.O.
--- NOTE | 2022-06-03 10:44 | PC.NURSE ---
Unable to obtain blood in triage.
[2022-06-03 11:58] LABS: Basophils Percent Auto 0.6 % (0.2-1.2); Eosinophils Absolute Auto 0.2 K/mm3 (0-0.3); Eosinophils Percent Auto 3.2 % (0-4.4); Hematocrit 32.5 % (37.0-47.0); Hemoglobin 9.9 g/dL (12.0-15.0); Immature Granulocyte Absolute 0.02 K/mm3 (0.00-0.031); Immature Granulocyte Percent A 0.3 % (0-0.5); Lymphocytes Absolute Auto 1.53 K/mm3 (0.9-3.2); Lymphocytes Percent Auto 22.6 % (18.3-44.2); Mean Corpuscular HGB Conc 30.5 g/dl (32-36); Mean Corpuscular Volume 78.7 fl (80-100); Mean Platelet Volume 8.8 fl (7.4-10.4); Monocytes Absolute Auto 0.4 K/mm3 (0.1-0.6); Monocytes Percent Auto 5.5 % (2.6-8.5); Neutrophils Absolute Auto 4.6 K/mm3 (1.3-6.7); Neutrophils Percent Auto 67.8 % (45.5-73.1); Platelet Count Result 363 k/mm3 (150-375); Red Blood Count 4.13 M/mm3 (4.2-5.4); Red Cell Distribution Width 16.3 % (11.5-14.5); White Blood Count 6.8 K/mm3 (4.5-10.0)
[2022-06-03 12:09] LABS: Alanine Aminotransferase 106 U/L (6-35); Albumin Level 3.7 g/dL (3.5-5.1); Alkaline Phosphatase 164 U/L (38-126); Anion Gap 5 mmol/L (8-16); Aspartate Amino Transferase 35 U/L (14-36); Bilirubin,Total 0.5 mg/dL (0.2-1.3); Blood Urea Nitrogen 11 mg/dL (7-17); Calcium 8.5 mg/dL (8.4-10.2); Carbon Dioxide 28 mmol/L (22-30); Chloride 104 mmol/L (98-107); Estimated CRCL calculation 133 ml/min; Estimated Glomerular Filt Rate > 60; Glucose 111 mg/dL (65-110); INR 0.9; Lipase 84 U/L (23-300); Potassium 3.8 mmol/L (3.4-5.0); Prothrombin Time 11.9 Seconds (11.1-14.7); Sodium 137 mmol/L (137-145)
[2022-06-03 12:11] LABS: Partial Thromboplastin Time 30.9 SECONDS (22.3-36.8)
[2022-06-03 12:20] LABS: Troponin I < 0.012 ng/mL (0.000-0.034)
[2022-06-03] MEDS: methylPREDNISolone SOD SUCC 125 MG VIAL IV PUSH (12:46)
[2022-06-03] MEDS: MORPHINE SULFATE (*CRX) 4 MG/ML INJ IV PUSH ×4 (12:46→22:26)
[2022-06-03] MEDS: diphenhydrAMINE HCl INJ 50 MG/ML VIAL IV PUSH (12:46)
[2022-06-03] MEDS: ONDANSETRON INJ 4 MG/2 ML VIAL IV PUSH ×2 (12:46→20:04)
[2022-06-03] MEDS: EPINEPHrine HCL INJ 1 MG/ML AMPUL 0.3 MG IM (13:15)
--- NOTE | 2022-06-03 13:15 | ED.GENADULT ---
HPI - General Adult General Chief complaint: Chest Pain Stated complaint: chest pain/sob Time Seen by Provider: 06/03/22 10:53 History of Present Illness HPI narrative: Patient is a 31-year-old female who presents ER with multiple complaints. First complaint is chest pain and shortness of breath. Ongoing over the last 2 to 3 days. Associated with coughing that makes her cough to the point that she has emesis. She will then vomit multiple times and then yesterday had 8 quarter sized blood clots come out. She then reports she had blood in her stool after that. Denies fevers or chills. She has been having some diarrhea. No known sick contacts. 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 She is not currently on blood thinner because they are all felt to be related to postop issues. Patient recently had a pacemaker placed in the last month. Related Data Home Medications Medication Instructions Recorded Confirmed baclofen 20 mg tablet 20 mg PO TID PRN Spasms 01/05/22 01/05/22 diphenhydramine HCl 50 mg capsule 50 mg PO PRN PRN Itching 01/05/22 01/05/22 escitalopram oxalate 20 mg tablet 20 mg PO HS 01/05/22 01/05/22 gabapentin 600 mg tablet 1,200 mg PO TID 01/05/22 01/05/22 lorazepam 1 mg tablet 1 mg PO HS 01/05/22 01/05/22 tramadol 50 mg tablet 50 mg PO Q6H PRN Pain 01/05/22 01/05/22 trazodone 100 mg tablet 200 mg PO HS 01/05/22 01/05/22 Allergies Allergy/AdvReac Type Severity Reaction Status Date / Time Beta-Blockers Allergy Anaphylaxis Verified 01/16/22 21:54 (Beta-Adrenergic Bloc iohexol Allergy Swelling Verified 06/03/22 13:16 [From contrast - CT, X-RAY] of Lip/Tongue/Throat latex Allergy Anaphylaxis Verified 01/16/22 21:54 Penicillins Allergy Hives Verified 01/16/22 21:54 peppermint Allergy Rash Verified 01/16/22 21:54 Review of Systems Review of Systems: All systems reviewed & are unremarkable except as noted in HPI and below Constitutional: Constitutional: Denies chills, Reports fatigue and Denies fever(s) ENT: Denies nasal congestion and Denies sore throat Cardiovascular: Cardiovascular: Reports chest pain, Denies rapid heart rate and Denies radiating jaw, neck or arm pain Respiratory: Respiratory: Reports cough and Reports dyspnea Gastrointestinal: Gastrointestinal: Reports abdominal pain, Reports diarrhea, Reports nausea and Reports vomiting Comments: Blood in stool and vomit Musculoskeletal: Musculoskeletal: Reports myalgias PMFSH Past Medical History Medical History (Updated 06/03/22 @ 18:02 by Jj Weinberg MD) Atrial fibrillation Bilateral foot-drop Chronic anemia Chronic pain syndrome Depression with anxiety Posttraumatic stress disorder Pulmonary embolism Spinal stenosis Supraventricular tachycardia Surgical History Surgical History (Updated 01/05/22 @ 22:23 by Lois Altman PA-C) History of Achilles tendon repair History of appendectomy History of cardiac radiofrequency ablation History of section History of cholecystectomy History of hysterectomy History of permanent cardiac pacemaker placement Family History Family History (Updated 01/05/22 @ 22:23 by Lois Altman PA-C) Father Spinal cord tumor Social History Social History (Updated 01/05/22 @ 22:24 by Lois Altman PA-C) Social History: Surrogate medical decision maker: moriah Ruvalcaba. Code status: Full code. Smoking status: Never smoker Alcohol intake: never Substance use: never Substance use type: does not use Additional living arrangements comments: Lives in [place], [place] with her 8-year-old daughter and moriah. Additional occupation/education comments: On disability. Spiritual care concerns: Yes (Would like Classification Inspector to see her if possible) Exam Narrative: GENERAL: Well-appearing, morbidly obese, and in no acute distress. HEAD: Normocephalic, atraumatic. EYES: PERRL and EOMI. ENT: Mucous membranes moist. CHEST: Cl
--- NOTE | 2022-06-03 13:17 | PC.NURSE ---
pt returns to room 7. states she had some throat tightening when she received iv contrast for ct. no hives noted. epi im given.
[2022-06-03] MEDS: diphenhydrAMINE HCl INJ 50 MG/ML VIAL 25 MG IV PUSH (14:35)
[2022-06-03 16:43] LABS: Troponin I < 0.012 ng/mL (0.000-0.034)
[2022-06-03 16:57] LABS: Influenza A QL RT-PCR Negative (Negative); Influenza B QL RT-PCR Negative (Negative); SARS-CoV-2 RNA PCR Positive
[2022-06-03] MEDS: PANTOPRAZOLE SODIUM IV 40 MG VIAL IV PUSH (18:04)
--- NOTE | 2022-06-03 19:46 | PM.IMHP ---
H&P: HPI History of Present Illness Date/Time: 06/03/22 19:46 Chief Complaint: abdomen pain/ gi bleed Narrative: Patient is a 31-year-old female who presents ER with multiple complaints.? First complaint is chest pain and shortness of breath.? Ongoing over the last 2 to 3 days.? Associated with coughing that makes her cough to the point that she has emesis.? She will then vomit multiple times and then yesterday had 8 quarter sized blood clots come out.? She then reports she had blood in her stool after that.? Denies fevers or chills.? She has been having some diarrhea.? No known sick contacts.? Patient reports history of recurrent PEs x12.? She is not currently on blood thinner because they are all felt to be related to postop issues.? Patient recently had a pacemaker placed in the last month.The patient is complaining of severe pain to her abdomen from vomiting .chest , abdomen, pelvis ct was read as Small lung volumes with diffuse mild atelectasis most likely related to poor respiratory effort. No pulmonary embolism or other acute cardiopulmonary disease. 2. Cardiomegaly. 3. No acute intra-abdominal/pelvic process. 4. Moderate contrast reaction with tightness sensation of the tongue and throat despite prior premedication. The patient is allergic to contrast but had been premedicated by ed . initial hemaglobin 9.9 now 10.2. iver enzymes elevated. The patient was given epinephrine, benadryl, morphine, zofran, asa, and steroids in the er. The patient was found to be positve for covid.Gi has been consulted.She is being admitted to observation on 06/03/22 Review of Systems Review of Systems: See hpi All systems reviewed & are unremarkable except as noted in HPI and below Constitutional: Constitutional: Reports as per HPI and Reports no additional constitutional complaints Eyes: Eyes: Reports as per HPI and Reports no additional eye complaints ENT: Reports system reviewed and no additional complaints, except as documented and Reports Normal hearing present Cardiovascular: Cardiovascular: Reports no additional cardiovascular complaints Respiratory: Respiratory: Reports no additional respiratory complaints and Reports no additional respiratory complaints Gastrointestinal: Gastrointestinal: Reports as per HPI and Reports no additional gastrointestinal complaints Musculoskeletal: Musculoskeletal: Reports no additional musculoskeletal complaints Integumentary/Breasts: Skin/Breast: Reports system reviewed and no additional complaints, except as docu and Reports as per HPI Neurologic: Reports system reviewed and no additional complaints, except as documented, Reports as per HPI and Reports Normal hearing present Psychiatric: Psychiatric: Reports no additional psychiatric complaints and Reports as per HPI Endocrine: Endocrine: Reports no additional endocrine complaints Hematologic/Lymphatic: Hematologic/Lymphatic: Reports no additional hematologic/lymphatic complaints Allergic/Immunologic: Allergic/Immunologic: Reports no additional allergic/immunologic complaints [facility] Past Medical History Medical History Atrial fibrillation Bilateral foot-drop Chronic anemia Chronic pain syndrome Depression with anxiety Posttraumatic stress disorder Pulmonary embolism 12 Spinal stenosis Supraventricular tachycardia Surgical History Surgical History H/O cardiac radiofrequency ablation 9 times History of Achilles tendon repair History of appendectomy History of cardiac radiofrequency ablation History of section History of cholecystectomy History of hysterectomy History of permanent cardiac pacemaker placement Family History Family History Father Spinal cord tumor Social History Social History (Updated 06/03/22 @ 19:50 by Hallie Coleman NP) Social History: [place]
[2022-06-03 20:07] LABS: Hematocrit 33.9 % (37.0-47.0); Hemoglobin 10.2 g/dL (12.0-15.0)
[2022-06-03 20:28] LABS: Troponin I < 0.012 ng/mL (0.000-0.034)
--- NOTE | 2022-06-03 21:59 | ADMGEN ---
This patient, Tatiana Leija, was admitted to IMU Room 209-01 at 2113. Patient/family oriented to hospital policies and general routines including ID bracelet, bed and alarms, visiting hours, pain management, procedures, bathroom and other care routines, personal items, smoking policy, room service/diet, and visiting hours. Information on how to activate the Rapid Response Team has been discussed. Patient/Family are encouraged to report perceived risks to care and to ask questions if they do not understand what they are told or what they should do.
[2022-06-04] VITALS (15 sets, daily range): BP systolic 111–150; BP diastolic 52–96; PULSE 70–91; RESP 16–22; TEMP 36.2–36.6; O2SAT 94–100
[2022-06-04] MEDS: PANTOPRAZOLE SODIUM IV 40 MG VIAL IV PUSH ×2 (00:49→09:28)
[2022-06-04] MEDS: MORPHINE SULFATE (*CRX) 4 MG/ML INJ IV PUSH ×4 (00:50→09:28)
[2022-06-04] MEDS: diphenhydrAMINE HCl INJ 50 MG/ML VIAL 25 MG IV PUSH ×4 (00:50→15:34)
[2022-06-04 04:43] LABS: Basophils Percent Auto 0.2 % (0.2-1.2); Hematocrit 32.9 % (37.0-47.0); Hemoglobin 9.9 g/dL (12.0-15.0); Immature Granulocyte Absolute 0.09 K/mm3 (0.00-0.031); Immature Granulocyte Percent A 0.8 % (0-0.5); Lymphocytes Absolute Auto 1.13 K/mm3 (0.9-3.2); Lymphocytes Percent Auto 9.6 % (18.3-44.2); Mean Corpuscular HGB Conc 30.1 g/dl (32-36); Mean Corpuscular Volume 76.5 fl (80-100); Mean Platelet Volume 8.7 fl (7.4-10.4); Monocytes Absolute Auto 0.2 K/mm3 (0.1-0.6); Monocytes Percent Auto 1.9 % (2.6-8.5); Neutrophils Absolute Auto 10.3 K/mm3 (1.3-6.7); Neutrophils Percent Auto 87.5 % (45.5-73.1); Platelet Count Result 400 k/mm3 (150-375); Red Cell Distribution Width 16.2 % (11.5-14.5); White Blood Count 11.8 K/mm3 (4.5-10.0)
[2022-06-04 04:52] LABS: Lipase 64 U/L (23-300); Magnesium 2.3 mg/dL (1.6-2.3)
[2022-06-04] MEDS: ESCITALOPRAM OXALATE 10 MG TABLET 20 MG PO (09:28)
[2022-06-04] MEDS: GABAPENTIN 400 MG CAPSULE 1200 MG PO ×3 (09:28→16:55)
--- NOTE | 2022-06-04 12:19 | WPDANESEPPF ---
Anes - Initial Pre Proc Eval Procedure: Operation Date: 06/04/22 13:00 Proposed Procedures p Esophagogastroduodenoscopy - Qasim Hook MD Date/Time: 06/04/22 12:19 Surgeon: Sai Cross MD Pre Op Diagnosis: GI Bleed,Anaphylaxis,Chest Pain Patient Data Age: 31 Gender: F Height: 1.7 m Weight: 132 kg Last Vital Signs Temp 97.5 F L 06/04/22 08:00 Pulse 70 06/04/22 10:00 Resp 18 06/04/22 08:00 BP 150/92 H 06/04/22 08:00 Pulse Ox 95 06/04/22 08:00 O2 Del Method Room Air 06/04/22 08:00 Allergies Allergy/AdvReac Type Severity Reaction Status Date / Time Beta-Blockers Allergy Anaphylaxis Verified 01/16/22 21:54 (Beta-Adrenergic Bloc iohexol Allergy Swelling Verified 06/03/22 13:16 [From contrast - CT, X-RAY] of Lip/Tongue/Throat latex Allergy Anaphylaxis Verified 01/16/22 21:54 Penicillins Allergy Hives Verified 01/16/22 21:54 peppermint Allergy Rash Verified 01/16/22 21:54 Home Medications Medication Instructions Recorded Confirmed Type baclofen 20 mg tablet 20 mg PO BID PRN Spasms 01/05/22 06/03/22 History escitalopram oxalate 20 mg tablet 20 mg PO DAILY 01/05/22 06/03/22 History gabapentin 600 mg tablet 1,200 mg PO TID 01/05/22 06/03/22 History tramadol 50 mg tablet 50 mg PO Q6H PRN Pain 01/05/22 06/03/22 History diazepam 5 mg tablet 5 mg PO BID PRN Anxiety 06/03/22 06/03/22 History Laboratory Tests 06/03/22 06/03/22 06/03/22 11:49 16:05 16:05 WBC RBC Hgb Hct MCV MCH MCHC RDW Plt Count MPV Immature Gran % (Auto) Neut % (Auto) Lymph % (Auto) [place] % (Auto) Eos % (Auto) Baso % (Auto) Lymph # (Auto) [place] # (Auto) Eos # (Auto) Baso # (Auto) Abs Immat Gran (auto) Absolute Neuts (auto) Absolute Nucleated RBC Nucleated RBC % Magnesium Troponin I < 0.012 ng/mL ng/mL < 0.012 ng/mL ng/mL (0.000-0.034) (0.000-0.034) Lipase TSH (Reflex) Influenza A (RT-PCR) Negative (Negative) Influenza B (RT-PCR) Negative (Negative) SARS-CoV-2 RNA (RT-PCR) Positive A 06/03/22 06/03/22 06/04/22 19:05 19:05 04:26 WBC RBC Hgb 10.2 g/dL L g/dL (12.0-15.0) Hct 33.9 % L % (37.0-47.0) MCV MCH MCHC RDW Plt Count MPV Immature Gran % (Auto) Neut % (Auto) Lymph % (Auto) [place] % (Auto) Eos % (Auto) Baso % (Auto) Lymph # (Auto) [place] # (Auto) Eos # (Auto) Baso # (Auto) Abs Immat Gran (auto) Absolute Neuts (auto) Absolute Nucleated RBC Nucleated RBC % Magnesium Troponin I < 0.012 ng/mL ng/mL (0.000-0.034) Lipase TSH (Reflex) 2.170 uIU/mL uIU/mL (0.465-4.68) Influenza A (RT-PCR) Influenza B (RT-PCR) SARS-CoV-2 RNA (RT-PCR) 06/04/22 06/04/22 04:27 04:27 WBC 11.8 K/mm3 H K/mm3 (4.5-10.0) RBC 4.30 M/mm3 M/mm3 (4.2-5.4) Hgb 9.9 g/dL L g/dL (12.0-15.0) Hct 32.9 % L % (37.0-47.0) MCV 76.5 fl L fl (80-100) MCH 23.0 pg L pg (26-34) MCHC 30.1 g/dl L g/dl (32-36) RDW 16.2 % H % (11.5-14.5) Plt Count 400 k/mm3 H k/mm3 (150-375) MPV 8.7 fl fl (7.4-10.4) Immature Gran % (Auto) 0.8 % H % (0-0.5) Neut % (Auto) 87.5 % H % (45.5-73.1) Lymph % (Auto) 9.6 % L % (18.3-44.2) [place] % (Auto) 1.9 % L % (2.6-8.5)
[2022-06-04 12:41] LABS: Hematocrit 34.6 % (37.0-47.0); Hemoglobin 10.6 g/dL (12.0-15.0)
--- NOTE | 2022-06-04 12:42 | WPDGICN ---
Assessment and Plan Assessment and plan (1) Acute GI bleeding: Code(s): K92.2 - Gastrointestinal hemorrhage, unspecified Status: Acute Assessment and Plan: will proceed with egd cough causes emesis and then noted blood- hematemesis vs hemoptypsis continue to monitor (2) Hematemesis: Code(s): K92.0 - Hematemesis Status: Acute Assessment and Plan: egd today (3) Chronic anemia: Code(s): D64.9 - Anemia, unspecified Status: Acute Assessment and Plan: near baseline, continue to monitor (4) COVID-19: Code(s): U07.1 - COVID-19 Status: Acute Assessment and Plan: on isolation (5) Depression with anxiety: Code(s): F41.8 - Other specified anxiety disorders Status: Acute (6) Chronic pain syndrome: Code(s): G89.4 - Chronic pain syndrome Status: Acute Assessment and Plan: she has pain at baseline (7) Morbid obesity: Code(s): E66.01 - Morbid (severe) obesity due to excess calories Status: Acute (8) Diarrhea: Code(s): R19.7 - Diarrhea, unspecified Status: Acute Assessment and Plan: rectal exam in ER negative for occult blood probably from covid GI Consult Note Consult date/time: 06/04/22 12:42 Reason for consult: hematemesis HPI: Tatianahugo Leija is a 31 year old female with history of implanted pacemaker device because of complications that occurred during an ablation procedure about 10 years ago, chronic anemia, 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 She came to ER with chest pain and shortness of breath for last 2 to 3 days, then started coughing up to the point that had to throw up then noted small amount streak of blood along with epigastric discomfort and more episodes of vomiting, also had diarrhea. She says that had egd/colonoscopy about 4 years ago. Also diagnosed with COVID. Chest , abdomen, pelvis ct reviewed and showed small lung volumes with diffuse mild atelectasis most likely related to poor respiratory effort. No pulmonary embolism or other acute cardiopulmonary disease. Cardiomegaly. No acute intra-abdominal/pelvic process. hb 9.9- baseline mid 10's Review of Systems Review of Systems: All systems reviewed & are unremarkable except as noted in HPI and below Constitutional: Constitutional: Reports fatigue and Denies fever(s) ENT: Denies sore throat Cardiovascular: Cardiovascular: Reports chest pain, Denies rapid heart rate and Denies radiating jaw, neck or arm pain Respiratory: Respiratory: Reports cough and Reports dyspnea Gastrointestinal: Gastrointestinal: Reports abdominal pain, Reports diarrhea, Reports nausea and Reports vomiting Comments: Blood in stool and vomit Genitourinary: Genitourinary: Denies hematuria Musculoskeletal: Musculoskeletal: Reports myalgias Integumentary/Breasts: Skin/Breast: Denies dry skin Neurologic: Denies Abnormal speech present Psychiatric: Psychiatric: Reports anxiety PMFSH Past Medical History Medical History (Updated 06/04/22 @ 13:04 by Qasim Hook MD) Atrial fibrillation Bilateral foot-drop Chronic anemia Chronic pain syndrome Depression with anxiety Diarrhea Hematemesis Morbid obesity Posttraumatic stress disorder Pulmonary embolism 12 Spinal stenosis Supraventricular tachycardia Surgical History Surgical History H/O cardiac radiofrequency ablation 9 times History of Achilles tendon repair History of appendectomy History of cardiac radiofrequency ablation History of section History of cholecystectomy History of hysterectomy History of permanent cardiac pacemaker placement Family History Family History Father Spinal cord tumor Social History Social History (Updated 06/03/22 @ 19:50 by Hallie Coleman NP
[2022-06-04] MEDS: LACTATED RINGERS 1,000 ML 150 ML IV CONT (12:47)
--- NOTE | 2022-06-04 14:50 | PM.IMPN ---
Progress Note: A&P Assessment and Plan (1) Acute GI bleeding: Code(s): K92.2 - Gastrointestinal hemorrhage, unspecified Status: Acute Assessment and Plan: Patieint presents with abdominal pain and GI bleeding with hematochezia and hematemesis. CT abdomen read as no acute intraabdominal /pelvis process. hgb 10 on admission and has remained stable. Patient has a chronic anemia and this appears to be in her baseline. EGD showing gastritis and gastric retention. She is not on shelter anticoagulation. Gastritis probably etiology of GI bleed. Continue Protonix. Wean off narcotics which can worsen gastric emptying. Hold on GES since she is on narcotics. Plan home tomorrow. (2) Anaphylactic reaction to contrast media: Code(s): T78.2XXA - Anaphylactic shock, unspecified, initial encounter; T50.8X5A - Adverse effect of diagnostic agents, initial encounter Status: Acute Assessment and Plan: The patient was having symptoms of anaphylaxis from contrast and was given epinephrine in the ED. She has IV benadryl prn. Symptoms resolved. Will change to oral. (3) COVID-19: Code(s): U07.1 - COVID-19 Status: Acute Assessment and Plan: Amos COVID positive on admission. CTA chest showing small lung volumes with diffuse mild atelectasis most likely related to poor respiratory effort. No pulmonary embolism or other acute cardiopulmonary disease. Not requiring O2. Continue supportive care (4) Chronic anemia: Code(s): D64.9 - Anemia, unspecified Status: Acute Assessment and Plan: As above. She is at her baseline (5) Depression with anxiety: Code(s): F41.8 - Other specified anxiety disorders Status: Acute Assessment and Plan: Depression with anxiety and hx of PTSD. Continue with lexapro and valium (6) Chronic pain syndrome: Code(s): G89.4 - Chronic pain syndrome Status: Acute Assessment and Plan: - continue with gabepentin (7) Posttraumatic stress disorder: Code(s): F43.10 - Post-traumatic stress disorder, unspecified Status: Acute Assessment and Plan: continue with lexapro and therapy (8) Atrial fibrillation: Code(s): I48.91 - Unspecified atrial fibrillation Status: Acute Assessment and Plan: History of atrial fibrillation and supraventricular tachycardia status post cardiac ablation x9, permanent pacemaker implantation. Not on care home anticoagulation. Subjective Date/time seen: 06/04/22 14:50 Interval history: 31yo female with AFib, bilateral foot drop, hx of PE and PTSD here for abdominal pain and GI bleeding. Assuming care. Chart reviewed. Patient denies any chest pain. She feels short of breath today. Still having severe abdominal pain with nausea. She has a dry cough. Exam Narrative: AF 97.1 113/59 91 16 98% ra Gen - NARD Chest - CTA bilaterally, nml RR CV - RRR S1/S2; Tele showing mostly paced rhythm. Abd - Soft, obese, diffusely tender without guarding or rebound. Ext - No pedal edema Psych - Nml mood and affect Skin - Warm and dry Objective Data Vital Signs Vital Signs: Vital Signs - 24 hr 06/03/22 15:16 06/03/22 15:17 06/03/22 19:00 Temperature Pulse Rate 79 74 Respiratory Rate 14 14 Blood Pressure 89/78 L Pulse Oximetry Oxygen Delivery 06/03/22 19:15 06/03/22 20:10 06/03/22 19:31 Temperature Pulse Rate 70 70 72 Respiratory Rate 13 19 Blood Pressure Pulse Oximetry Oxygen Delivery 06/03/22 19:32 06/03/22 19:45 06/03/22 20:13 Temperature Pulse Rate 70 73 70 Respiratory Rate 19 14 13 Blood Pressure 139/84 Pulse Oximetry 93 Oxygen Delivery 06/03/22 20:15 06/03/22 21:23 06/03/22 23:02 Temperature 97.7 F 97.3 F L Pulse Rate 70 70 70 Respiratory Rate 15 22 H 20 Blood Pressure 155/76 H 122/87 Pulse Oximetry 94 100 99 Oxygen Delivery 06/03/22 21:30 06/03/22 21:30
--- NOTE | 2022-06-04 20:57 | PM.EVENT ---
Event Note Event Note Event Note: 06/04/2022 at 20:51 The patient stated that if she could not get IV narcotics that she would just rather go home. She refused oral medications or available for her use because she stated they made her abdominal pain worse. Patient's labs were reviewed and hemoglobin was stable. EGD report was reviewed. Patient was informed of risks of leaving against medical advice by nursing staff and patient still chose to leave. Patient signed out AMA.
[2022-06-04] MEDS: diazePAM (*CRX) 5 MG TABLET PO (22:58)
[2022-06-04] MEDS: HYDROcodone/acetaminophen (*CRX) 5-325 MG TABLET 1 TAB PO (22:58)
--- NOTE | 2022-06-04 23:13 | PC.NURSE ---
On shift assessment around 1929, pt was stating that she wanted to discharge home due to not receiving IV pain medications. Patient has plenty of PO pain medication but is refusing all of them. Pt continues to remove telemetry. Informed Doctor Yvon and Charge nurse Cheri of the situation and was provided the instruction to give her AMA paperwork. When given the AMA paperwork, patient stated that she didn't want to leave AMA, she just wanted to be discharged home and requested to see the doctor. I informed the doctor of situation and she refused to see patient and refused to discharge pt home. Patient refuses to put telemetry back on eventhough she is still present in the hospital around 2200. At 2300, pt decided to stay in the hospital, put herself back into bed and telemetry was reapplied. Some PRN medications were given as well.
[2022-06-05] VITALS (13 sets, daily range): BP systolic 110–142; BP diastolic 52–87; PULSE 70; RESP 16–21; TEMP 35.7–36.4; O2SAT 97–100
[2022-06-05] MEDS: GABAPENTIN 400 MG CAPSULE 1200 MG PO ×2 (08:56→18:04)
[2022-06-05] MEDS: ESCITALOPRAM OXALATE 10 MG TABLET 20 MG PO (08:56)
[2022-06-05] MEDS: PANTOPRAZOLE 40 MG TABLET PO (08:56)
--- NOTE | 2022-06-05 10:10 | WPDANESPN ---
Anes - Prog Note Post-Op Date/Time: 06/05/22 10:10 Cardiovascular status: normal Respiratory status: normal Airway patency: baseline Mental status: baseline Post-Op hydration status: normal Vital Signs: Last Vital Signs Temp 35.7 C L 06/05/22 08:32 Pulse 70 06/05/22 08:32 Resp 21 H 06/05/22 08:32 BP 118/72 06/05/22 08:32 Pulse Ox 99 06/05/22 08:32 O2 Del Method Room Air 06/05/22 04:00 Pain Score (VAS): 0 I/O: Intake & Output 06/04/22 06/05/22 06/05/22 23:59 07:59 15:59 Intake Total 40 1000 Balance 40 1000 Laboratory Tests 06/04/22 12:30 06/03/22 11:49 06/04/22 12:30 Hgb 10.6 L Hct 34.6 L Post-procedural complaints: none Patient Feedback: Patient satisfied with anesthetic care.
[2022-06-05] MEDS: HYDROcodone/acetaminophen (*CRX) 5-325 MG TABLET 1 TAB PO (11:30)
--- NOTE | 2022-06-05 13:11 | WPDGIPROGNO ---
Progress Note: A&P Assessment and Plan (1) Erosive gastritis: Code(s): K29.60 - Other gastritis without bleeding Status: Acute Assessment and Plan: ppi daily and continue with the same on discharge diet as tolerated will follow from [place], call if questions (2) Hematemesis: Code(s): K92.0 - Hematemesis Status: Acute Assessment and Plan: resolved, found non-bleeding erosive gastritis pending bx (3) COVID-19: Code(s): U07.1 - COVID-19 Status: Acute Assessment and Plan: isolation (4) Morbid obesity: Code(s): E66.01 - Morbid (severe) obesity due to excess calories Status: Acute (5) Chronic pain syndrome: Code(s): G89.4 - Chronic pain syndrome Status: Acute Subjective Date/time seen: 06/05/22 13:11 Interval history: cough and some abdominal pain, poor appetite egd showed erosive gastritis and retained food, no bleeding Review of Systems Review of Systems: All systems reviewed & are unremarkable except as noted in HPI and below Exam Narrative: GENERAL: Well-appearing, morbidly obese, and in no acute distress. HEAD: Normocephalic, atraumatic. EYES: PERRL and EOMI. ENT: Mucous membranes moist. CHEST: Clear to auscultation. HEART: Regular rate and rhythm. ABDOMEN: Soft, nontender, nondistended. EXTREMITIES: Normal range of motion. SKIN: Warm, dry, no rash. NEURO: Alert and oriented x3. PSYCH: anxious. Objective Data Vital Signs Vital Signs: Vital Signs - 24 hr 06/04/22 13:20 06/04/22 13:55 06/04/22 16:00 Temperature 97.2 F L 97.1 F L Pulse Rate 70 70 91 Respiratory Rate 20 16 16 Blood Pressure 119/55 L 125/78 113/59 L Pulse Oximetry 98 94 98 Oxygen Delivery Room Air 06/04/22 16:00 06/04/22 16:00 06/04/22 18:00 Temperature Pulse Rate 70 70 Respiratory Rate Blood Pressure Pulse Oximetry Oxygen Delivery Room Air 06/04/22 20:00 06/04/22 20:00 06/04/22 20:00 Temperature 97.2 F L Pulse Rate 70 70 70 Respiratory Rate 16 16 Blood Pressure 111/52 L Pulse Oximetry 97 97 Oxygen Delivery Room Air 06/05/22 00:00 06/05/22 00:00 06/05/22 00:00 Temperature 97.5 F L Pulse Rate 70 70 70 Respiratory Rate 16 16 Blood Pressure 119/68 Pulse Oximetry 100 100 Oxygen Delivery Room Air 06/05/22 02:00 06/05/22 04:00 06/05/22 04:00 Temperature Pulse Rate 70 70 70 Respiratory Rate 16 Blood Pressure Pulse Oximetry 100 Oxygen Delivery Room Air 06/05/22 04:00 06/05/22 06:00 06/05/22 08:32 Temperature 97.6 F 96.2 F L Pulse Rate 70 70 70 Respiratory Rate 16 21 H Blood Pressure 137/83 118/72 Pulse Oximetry 97 99 Oxygen Delivery 06/05/22 11:59 Temperature 97.4 F L Pulse Rate 70 Respiratory Rate 20 Blood Pressure 142/87 H Pulse Oximetry 100 Oxygen Delivery Intake/Output Intake/Output: Intake & Output 06/02/22 06/03/22 06/04/22 06/05/22 23:59 23:59 23:59 23:59 Intake Total 90 1000 Balance 90 1000 Meds/Results Medications: Active Medications Generic Name Dose Route Start Last Admin Trade Name Freq PRN Reason Stop Dose Admin Acetaminophen 650 mg 06/03/22 15:31 Acetaminophen 325 Mg Tablet PO Q4H PRN Mild Pain (1-3) or Fever Hydrocodone Bitart/Acetaminophen 1 tab 06/04/22 17:26 06/05/22 11:30 Hydrocodone/Acetaminophen (*Crx) 5-325 Mg Tablet PO 1 tab Q4H PRN Administration Pain Rated 7-10 Baclofen 20 mg 06/03/22 23:57 Baclofen 10 Mg Tablet PO BID PRN Spasms Diazepam 5 mg 06/03/22 23:57 06/04/22 22:58 Diazepam (*Crx) 5 Mg Tablet PO 5 mg BID PRN Administration Anxiety Diphenhydramine HCl 25 mg 06/04/22 17:20 Diphenhydramine Hcl Cap 25 Mg Capsule PO Q6H PRN Itching Escitalopram Oxalate 20 mg 06/04/22 09:00 06/05/22 08:56 Escitalopram Oxalate 10 Mg Tablet PO 20 mg DAILY MYLENE Administration Gabapentin 1,200 mg 06/04/22 00:05
--- NOTE | 2022-06-05 13:53 | PM.DS ---
DS: Admitting Diagnosis Discharge Date 06/05/22 Admitting Diagnosis Abdominal pain DS: Discharge Diagnosis Discharge Diagnosis (1) Acute GI bleeding: Code(s): K92.2 - Gastrointestinal hemorrhage, unspecified Status: Acute (2) Anaphylactic reaction to contrast media: Code(s): T78.2XXA - Anaphylactic shock, unspecified, initial encounter; T50.8X5A - Adverse effect of diagnostic agents, initial encounter Status: Acute (3) COVID-19: Code(s): U07.1 - COVID-19 Status: Acute (4) Chronic anemia: Code(s): D64.9 - Anemia, unspecified Status: Acute (5) Depression with anxiety: Code(s): F41.8 - Other specified anxiety disorders Status: Acute (6) Chronic pain syndrome: Code(s): G89.4 - Chronic pain syndrome Status: Acute (7) Posttraumatic stress disorder: Code(s): F43.10 - Post-traumatic stress disorder, unspecified Status: Acute (8) Atrial fibrillation: Code(s): I48.91 - Unspecified atrial fibrillation Status: Acute DS: Summary Hospital Course Reason for hospitalization: 31yo female with AFib, bilateral foot drop, hx of PE and PTSD here for abdominal pain and GI bleeding. Please see H&P for details Hospital Course: Patiient presents with abdominal pain and GI bleeding with hematochezia and hematemesis. CT abdomen read as no acute intraabdominal /pelvis process. Hgb 10 on admission and remained stable. Patient has a hx of chronic anemia and this appears to be in her baseline. GI consulted and EGD showing non-bleeding gastritis and gastric retention. She is not on [facility] anticoagulation. We continued Protonix. We wean her off narcotics. The patient was having symptoms of anaphylaxis from contrast and was given epinephrine in the ED. She had IV benadryl prn. Symptoms resolved. Patient was COVID positive on admission. CTA chest showing?small lung volumes with diffuse mild atelectasis most likely related to poor respiratory effort. No pulmonary embolism or other acute cardiopulmonary disease.?Not requiring O2. Treated with supportive care. She overall did well and was able to discharge home on 06/05/22 Status at Discharge Cognitive/behavioral status at discharge: Stable Time Spent with Patient Time attestation: Total time spent providing and/or coordinating discharge services:35 minutes Time spent: Greater than 30 minutes Exam Narrative: AF 142/87 70 20 100% ra Gen - NARD Chest - CTA bilaterally, nml RR CV - RRR S1/S2 Abd - Soft, obese, minimal tenderness Ext - No pedal edema Psych - Nml mood and affect Skin - Warm and dry DS: Data Data Completed and Pending Completed studies during hospitalization: Pending at discharge 06/04/22 12:59 Surgical [PTH] Routine Discharge Plan Discharge Attending physician on discharge: Liu Samayoa Consulting providers: Qasim Hook Discharging Clinician: Liu Samayoa Anticipated Discharge Date/Time: 06/05/22 13:58 Patient Disposition: Home, Self-Care Activity: as tolerated Diet: heart healthy Discharge Instructions: Please avoid large gathering, wear face coverings in public and practice social distance. Take precautions to avoid falls. Rise slowly from a lying or sitting position. Pause before standing or walking. Contact your doctor or call 911 and come to the Emergency Room if you have recurrent evidence of bleeding or other worrisome symptoms. Avoid NSAIDs (ibuprofen, naproxen, Aleve). Tylenol is safe to take. Follow-up with your primary care provider in 1-2 weeks. Please call for appointment. Follow-up with GI doctor if you develop if you develop nausea or early fullness with eating. -- Call the GI office for results if you haven't heard from them in 1 week. Thank you for using [facility] for your health care needs. Patient Instructions: Antibiotic Form Stand Alone Forms: General Discharge Inf
== END 2022-06-05 18:05 | disposition home or self-care (01) | DRG 377 ==
LOC: ANHED 18:02 → ANHIMU 18:05
PROVIDERS: Internal Medicine Gastroenterology; Nurse Practitioner; Admitting Provider Internal Medicine; Emergency Provider Emergency Medicine; Visit Provider Internal Medicine
PROC: 0DJ08ZZ Inspection of Upper Intestinal Tract, Via Natural or Artificial Opening Endoscopic (ICD-10-PCS; CPT 43235; principal; 2022-06-04 13:00)
DX: K29.71 Gastritis, unspecified, with bleeding (principal); U07.1 COVID-19; I48.20 Chronic atrial fibrillation, unspecified; T88.6XXA Anaphylactic reaction due to adverse effect of correct drug or medicament properly administered, initial encounter; Z68.42 Body mass index [BMI] 45.0-49.9, adult; K31.89 Other diseases of stomach and duodenum; D64.9 Anemia, unspecified; M21.372 Foot drop, left foot; M21.371 Foot drop, right foot; M48.00 Spinal stenosis, site unspecified; G89.4 Chronic pain syndrome; E66.01 Morbid (severe) obesity due to excess calories; F41.9 Anxiety disorder, unspecified; F32.A Depression, unspecified; F43.10 Post-traumatic stress disorder, unspecified; T50.8X5A Adverse effect of diagnostic agents, initial encounter; Z95.0 Presence of cardiac pacemaker; Z86.711 Personal history of pulmonary embolism
CPT/HCPCS: 36415; 71046; 71275; 74177; 80053; 83690; 83735; 84443; 84484; 85014; 85018; 85025; 85610; 85730; 87081; 87636; 88305; 93005; 96372; 96374; 96375; 96376; 99285; A9270; C9113; G0378; J0171; J1200; J2270; J2405; J2704; J2930; J7120; Q9967

== ENCOUNTER 2022-06-10 03:53 | Emergency (ER) | payer MEDICARE, MEDICAID, SELFPAY ==
[2022-06-10 04:07] VITALS: BP 124/81; PULSE 70; RESP 14; TEMP 36.6; O2SAT 98
--- NOTE | 2022-06-10 04:09 | ED.GENADULT ---
HPI - General Adult General Chief complaint: GI Bleed Stated complaint: bloody stools, vomiting blood Time Seen by Provider: 06/10/22 03:56 History of Present Illness HPI narrative: 31-year-old female presented to the emergency department for evaluation of hematochezia and melena. Patient was recently admitted and had an EGD and colonoscopy which showed some gastritis but no active bleeding. Patient was instructed to start taking PPI daily. Patient states that she has been having increased bleeding. Patient also states she is having difficulty controlling her chronic pain. Patient was weaned from [place] and has been taking tramadol. Related Data Home Medications Medication Instructions Recorded Confirmed baclofen 20 mg tablet 20 mg PO BID PRN Spasms 01/05/22 06/04/22 escitalopram oxalate 20 mg tablet 20 mg PO DAILY 01/05/22 06/04/22 gabapentin 600 mg tablet 1,200 mg PO TID 01/05/22 06/04/22 tramadol 50 mg tablet 50 mg PO Q6H PRN Pain 01/05/22 06/04/22 diazepam 5 mg tablet 5 mg PO BID PRN Anxiety 06/03/22 06/04/22 Allergies Allergy/AdvReac Type Severity Reaction Status Date / Time Beta-Blockers Allergy Anaphylaxis Verified 06/10/22 04:04 (Beta-Adrenergic Bloc iohexol Allergy Swelling Verified 06/10/22 04:04 [From contrast - CT, X-RAY] of Lip/Tongue/Throat latex Allergy Anaphylaxis Verified 06/10/22 04:04 Penicillins Allergy Hives Verified 06/10/22 04:04 peppermint Allergy Rash Verified 06/10/22 04:04 Review of Systems Review of Systems: CONSTITUTIONAL: Denies fever, chills, or sweats. EYES: Denies visual changes, redness, or discharge. ENT: Denies rhinorrhea, congestion, sore throat, or otalgia. CARDIOVASCULAR: Denies chest pain, palpitations, or edema. RESPIRATORY: Denies cough or dyspnea. GASTROINTESTINAL: See HPI GENITOURINARY: Denies dysuria or hematuria. SKIN: Denies rash or itching. MUSCULOSKELETAL: See HPI NEUROLOGIC: Denies headache, numbness, or weakness. [facility] Past Medical History Medical History (Updated 06/10/22 @ 05:17 by Alexis Moncada MD) Atrial fibrillation Bilateral foot-drop Chronic anemia Chronic pain syndrome Depression with anxiety Diarrhea Erosive gastritis Hematemesis Morbid obesity Posttraumatic stress disorder Pulmonary embolism 12 Spinal stenosis Supraventricular tachycardia Surgical History Surgical History H/O cardiac radiofrequency ablation 9 times History of Achilles tendon repair History of appendectomy History of cardiac radiofrequency ablation History of section History of cholecystectomy History of hysterectomy History of permanent cardiac pacemaker placement Family History Family History Father Spinal cord tumor Social History Social History (Updated 06/03/22 @ 19:50 by Hallie Coleman NP) Social History: Surrogate medical decision maker: moriah Ruvalcaba. Code status: Full code. Smoking status: Never smoker Alcohol intake: never Substance use: never Substance use type: does not use Lack of Transportation: No Lack of Food: Never True Current Housing: I Have Housing Concerned About Future Housing: No Difficulty Paying Gas/Electric Bills: No Difficulty Paying for Meds: No Currently Unemployed: No Education: High School Diploma/GED Difficulty w/ Childcare or Family Care: No Additional living arrangements comments: Lives in [place], [place] with her 9-year-old daughter and moriah. Additional occupation/education comments: On disability. Spiritual care concerns: Yes (Would like Electrical Designer to see her if possible) Exam Narrative: APPEARANCE: Well appearing, no pain, no distress, well-nourished. HEAD: normocephalic, atraumatic. EYES: PERRLA/EOMI, conjunctivae clear. NOSE: Normal no drainage THROAT: Pharynx clear, no exudate. NECK: Supple. No adenopathy, no masses.
[2022-06-10 04:45] LABS: Basophils Absolute Auto 0.1 K/mm3 (0.0-0.1); Basophils Percent Auto 0.5 % (0.2-1.2); Eosinophils Absolute Auto 0.4 K/mm3 (0-0.3); Eosinophils Percent Auto 3.7 % (0-4.4); Hematocrit 38.8 % (37.0-47.0); Hemoglobin 11.8 g/dL (12.0-15.0); Immature Granulocyte Absolute 0.04 K/mm3 (0.00-0.031); Immature Granulocyte Percent A 0.4 % (0-0.5); Lymphocytes Absolute Auto 2.55 K/mm3 (0.9-3.2); Lymphocytes Percent Auto 26.6 % (18.3-44.2); Mean Corpuscular HGB Conc 30.4 g/dl (32-36); Mean Corpuscular Hemoglobin 23.6 pg (26-34); Mean Corpuscular Volume 77.6 fl (80-100); Mean Platelet Volume 8.6 fl (7.4-10.4); Monocytes Absolute Auto 0.6 K/mm3 (0.1-0.6); Monocytes Percent Auto 6.4 % (2.6-8.5); Neutrophils Percent Auto 62.4 % (45.5-73.1); Platelet Count Result 404 k/mm3 (150-375); Red Cell Distribution Width 15.9 % (11.5-14.5); White Blood Count 9.6 K/mm3 (4.5-10.0)
--- NOTE | 2022-06-10 04:51 | PC.NURSE ---
RN attempted NG tube placement, put unable to tolerate procedure. ERP made aware
[2022-06-10 04:56] LABS: INR 1.1; Partial Thromboplastin Time 28.8 SECONDS (22.3-36.8); Prothrombin Time 13.6 Seconds (11.1-14.7)
[2022-06-10] MEDS: ONDANSETRON INJ 4 MG/2 ML VIAL IV PUSH (04:57)
[2022-06-10 05:02] LABS: Alanine Aminotransferase 69 U/L (6-35); Albumin Level 4.2 g/dL (3.5-5.1); Alkaline Phosphatase 197 U/L (38-126); Anion Gap 8 mmol/L (8-16); Aspartate Amino Transferase 49 U/L (14-36); Bilirubin,Total 1.2 mg/dL (0.2-1.3); Blood Urea Nitrogen 13 mg/dL (7-17); Calcium 9.1 mg/dL (8.4-10.2); Carbon Dioxide 22 mmol/L (22-30); Chloride 103 mmol/L (98-107); Estimated Glomerular Filt Rate > 60; Glucose 102 mg/dL (65-110); Potassium 4.1 mmol/L (3.4-5.0); Sodium 133 mmol/L (137-145)
== END 2022-06-10 05:15 | disposition home or self-care (01) ==
PROVIDERS: Emergency Provider Emergency Medicine
DX: R11.2 Nausea with vomiting, unspecified (principal); G89.4 Chronic pain syndrome; I48.91 Unspecified atrial fibrillation; D64.9 Anemia, unspecified; F41.8 Other specified anxiety disorders; Z86.711 Personal history of pulmonary embolism; E66.01 Morbid (severe) obesity due to excess calories; Z95.0 Presence of cardiac pacemaker; Z90.710 Acquired absence of both cervix and uterus
CPT/HCPCS: 36415; 80053; 85025; 85610; 85730; 96374; 99284; J0131; J2405